=== PATIENT | female | born 1950 | race Caucasian/White ===

== ENCOUNTER 2022-01-30 10:17 | Inpatient (IN) | payer MEDICARE, SELFPAY ==
--- NOTE | ~2022-01-30 | CT_ITS ---
EXAMINATION: CT ABDOMEN AND PELVIS WITH CONTRAST CLINICAL INFORMATION: Lower abdominal pain and fullness COMPARISON: None TECHNIQUE: Multidetector volumetric images were obtained from the superior aspect of the liver through the pubic symphysis following administration 85 mL of Omnipaque 350 intravenous contrast. Sagittal and coronal reformatted images were obtained on the technologist's workstation. Oral contrast: No This CT examination was performed using dose optimization techniques as appropriate, variously including the following: *Automated exposure control *Adjustment of mA and/or kV according to patient size (this includes techniques or standardized protocols for targeted exams where dose is matched to indication/reason for exam; i.e. extremities or head) *Use of iterative reconstruction technique DLP: 703 mGy-cm FINDINGS: LUNG BASES: The visualized lung bases are unremarkable. LIVER, GALLBLADDER, AND BILIARY TREE: The liver is normal in size, shape, and attenuation. No focal hepatic lesion or biliary ductal dilatation is present. The gallbladder is unremarkable with no evidence of radiopaque gallstones, gallbladder wall thickening, or obvious pericholecystic inflammatory changes. PANCREAS: Unremarkable. SPLEEN: Unremarkable. ADRENAL GLANDS: Unremarkable. KIDNEYS AND URETERS: The kidneys are normal in size, shape, and attenuation. No hydronephrosis, hydroureter, or obstructing calculi seen. No perinephric stranding. BLADDER: Minimally distended and not well evaluated. GASTROINTESTINAL TRACT: No evidence of bowel obstruction. Assessment for wall thickening in some segments of the colon is limited due to luminal collapse, though no significant pericolonic stranding is seen to strongly suggest a colitis. Scattered colonic diverticulosis is noted. The appendix is unremarkable. No free fluid or free air is seen. ABDOMINAL WALL: No significant hernia is appreciated. LYMPH NODES: There are several enlarged retroperitoneal and pelvic lymph nodes. The most prominent lymph nodes include a retroperitoneal node measuring up to 2.5 cm short axis dimension on image 37/82 and a left pelvic sidewall lymph node measuring 2.5 cm in short axis dimension on image 54/82. VASCULAR: Unremarkable. PELVIC VISCERA: There is an abnormal appearance of the uterus. There is marked endometrial thickening to approximately 5.9 cm, and numerous foci of gas are scattered throughout the endometrium and cervix. Appearance is suspicious for malignancy. A left-sided fibroid is suspected towards the fundus measuring up to 4.6 cm in diameter. OSSEOUS STRUCTURES: Degenerative changes are noted in the spine. CT/CT abdomen pelvis w IV con IMPRESSION: 1. Marked endometrial thickening along with scattered foci of gas, suspicious for uterine malignancy in a patient of this age. Fistulous connection with the GI tract cannot be excluded. In the proper clinical setting, endometritis could also result in this appearance. 2. Several enlarged retroperitoneal and pelvic lymph nodes, suspicious for rob metastases. This critical result was discussed with Dr. Meng on 01/30/2022 2:58 PM, and it was ascertained that the content and urgency of the report was understood at the time of direct communication.
[2022-01-30 10:21] VITALS: BP 133/73; PULSE 100; RESP 16; TEMP 36.1; O2SAT 96; BMI 26.4
[2022-01-30 10:36] LABS: MANUAL DIFF FLAG NO
[2022-01-30 10:40] LABS: Basophils Percent Auto 0.2 % (0-2); Eosinophils Absolute Auto 0.2 X10*3/uL (0.0-0.4); Eosinophils Percent Auto 1.1 % (0-4); Hematocrit 34.7 % (37.0-47.0); Hemoglobin 11.1 g/dl (12.0-16.0); Imm Gran Abs Auto 0.07 X10*3/uL (0.00-0.03); Imm Gran Pct Auto 0.5 % (0.0-0.4); Lymphocytes Absolute Auto 1.5 X10*3/uL (1.2-4.9); Lymphocytes Percent Auto 10.7 % (20-40); Mean Corpuscular Hemoglobin 28.5 pg (27.0-33.0); Mean Corpuscular Volume 89.2 fL (80.0-98.0); Monocytes Percent Auto 6.8 % (2-11); Neutrophils Absolute Auto 11.5 x10*3/uL (2.0-8.3); Neutrophils Percent Auto 80.7 % (45-73); Platelet Count 333 X10*3/uL (160-400); Red Blood Count 3.89 X10*6/uL (4.20-5.50); White Blood Count 14.3 X10*3/uL (4.8-10.8)
[2022-01-30 10:57] LABS: Alanine Aminotransferase 11 U/L (0-31); Albumin Level 3.4 g/dL (3.5-5.0); Alkaline Phosphatase 102 U/L (39-117); Anion Gap 15 (12-20); Aspartate Amino Transferase 10 U/L (5-31); Bilirubin Direct 0.3 mg/dL (0.0-0.5); Bilirubin Total 0.7 mg/dL (0.0-1.0); Blood Urea Nitrogen 6 mg/dL (9-16); Calcium 9.5 mg/dL (8.4-10.2); Carbon Dioxide 27 mmol/L (22-29); Chloride 103 mmol/L (96-108); Creatinine Clr Calc Pharmacy 85.6; Estimated Glomerular Filt Rate > 60; Glucose Random 128 mg/dL (60-115); Potassium 3.8 mmol/L (3.3-5.1); Sodium 141 mmol/L (135-145)
--- NOTE | 2022-01-30 12:38 | ED_ITS ---
HPI - Abdominal Pain General Chief Complaint: Abdominal Pain Stated Complaint: bowl blockage? vaginal discharge Time Seen by Provider: 01/30/22 12:15 Source: patient Mode of arrival: ambulatory Limitations: no limitations History of Present Illness HPI narrative: patient has been having abdominal pain, patient with left lower pain. only passing small BM but no real BM. Last normal BM was 2 months ago. Now having smaller and thinner BM than normal. MD elicited complaint: abdominal pain Pertinent past history: constipation Onset (ago): month(s) Pain Consistency: intermittent Location: LLQ Severity: moderate Quality: cramping Radiation: none Migration to: no migration Exacerbating factors: eating Associated symptoms: denies other symptoms Related Data Home Medications Medication Instructions Recorded Confirmed viviscal PO 01/30/22 Allergies Allergy/AdvReac Type Severity Reaction Status Date / Time No Known Allergies Allergy Verified 01/30/22 12:25 Review of Systems Constitutional: Reports no additional constitutional complaints Eyes: Reports no additional eye complaints Denies dizziness Cardiovascular: Reports no additional cardiovascular complaints Respiratory: Reports as per HPI Gastrointestinal: Reports no additional gastrointestinal complaints Genitourinary: Reports no additional female genitourinary complaints Musculoskeletal: Reports no additional musculoskeletal complaints Skin/Breast: Denies rash Reports system reviewed and no additional complaints, except as documented, Denies dizziness and Denies Sensory deficit (Neuro) Psychiatric: Denies anxiety [facility] Social History Social History Advance Directives: No Advance Directives Information Provided: No Physical Exam ED Vital Signs: Vital Signs - 24 hr 01/30/22 10:21 01/30/22 12:58 01/30/22 14:31 Temperature 97 F 98.6 F 99.2 F Pulse Rate 100 84 86 Respiratory Rate 16 14 Blood Pressure 133/73 129/73 148/67 H Pulse Oximetry 96 98 99 Oxygen Delivery Method Room Air Room Air Room Air BMI result Body Mass Index 26.4 Const General: healthy appearing Nutritional Appearance: average body habitus Orientation/consciousness: oriented to person and patient oriented x3 Limitations: no limitations HENMT Head: Yes normal to inspection Ears: external ears normal General nose exam: Normal external nose present Mouth: Normal oral and palatal mucosa present and oropharynx normal Throat: Yes posterior oropharynx normal Eyes General: appearance normal, both eyes and all related structures Neck Neck: Yes normal visual inspection Chest Chest palpation & inspection: normal inspection of the chest Resp Auscultation: clear to auscultation bilaterally Cardio Jugular venous distension: no JVD Rate: regular rate Rhythm: regular rhythm Heart sounds: S1 normal heart sound present and S2 normal heart sound present GI Other: left lower quadrant fullness with pain and guarding Palpation (GI): Soft to palpation and Tenderness to palpation present (GI) Auscultation: normal bowel sounds General: Yes no CVA tenderness Back/Spine/Pelvis Back: no CVA tenderness Skin General skin exam: no rashes or lesions noted Neuro General: oriented to person and patient oriented x3 Cranial nerves: Yes CN's II-XII intact bilaterally Motor exam (neuro): 5/5 motor strength present throughout Sensory Exam: No Sensory deficit (Neuro) Extrem General: Yes normal to inspection Psych Appearance: grossly normal Course Reevaluation(s) Reevaluation #1: Discussed with Dr. Mora will consult, started zosyn for endometritis. In retrospect patient has had discharge and bleeding for months, since March so high likelihood of endometrial carcinoma Time: 15:15 MDM - Abdominal Pain Lab Data Result diagrams: 01/30/22 10:30 01/30/22 10:30 Labs: Lab Results 01/30/22 01/30/22 Range/Units 10:30 10:30 WBC 14.3 H (4.8-10.8) X10*3/uL RBC 3.89 L (4.20-5.50) X10*6/uL Hgb 11.1 L (12.0-16.0) g/dl Hct 34.7 L (37.0-47.0) % MCV 89.2 (80.0-98.0) fL MCH 28.5 (27.0-33.0) pg MCHC 32.0 (31.0-35.0) g/dl RDW 14.0 (11.0-16.0) % Plt Count 333 (160-400) X10*3/uL MPV 9.0 L (9.4-12.3) fL Immature Gran % (Auto) 0.5 H (0.0-0.4) % Neut % (Auto) 80.7 H (45-73) % Lymph % (Auto) 10.7 L (20-40) % [place] % (Auto) 6.8 (2-11) % Eos % (Auto) 1.1 (0-4) % Baso % (Auto) 0.2 (0-2) % Lymph # (Auto) 1.5 (1.2-4.9) X10*3/uL [place] # (Auto) 1.0 (0.1-1.2) X10*3/uL Eos # (Auto) 0.2 (0.0-0.4) X10*3/uL Baso # (Auto) 0.0 (0.0-0.2) X10*3/uL Abs Immat Gran (auto) 0.07 H (0.00-0.03) X10*3/uL Absolute Neuts (auto) 11.5 H (2.0-8.3) x10*3/uL Absolute Nucleated RBC 0.000 (0.0-0.012) X10*3/uL Nucleated RBC % (auto) 0.0 (0.0-0.2) /100WBC Sodium 141 (135-145) mmol/L Potassium 3.8 (3.3-5.1) mmol/L Chloride 103 (96-108) mmol/L Carbon Dioxide 27 (22-29) mmol/L Anion Gap 15 (12-20) BUN 6 L (9-16) mg/dL Creatinine 0.57 (0.5-1.4) mg/dL Estim Creat Clear Calc 85.6 Estimated GFR > 60 Random Glucose 128 H (60-115) mg/dL Calcium 9.5 (8.4-10.2) mg/dL Total Bilirubin 0.7 (0.0-1.0) mg/dL Direct Bilirubin 0.3 (0.0-0.5) mg/dL AST 10 (5-31) U/L ALT 11 (0-31) U/L Alkaline Phosphatase 102 (39-117) U/L Total Protein 7.0 (6.5-8.0) g/dL Albumin 3.4 L (3.5-5.0) g/dL Imaging Data CT scan - abdomen: Radiologist's impression: Abnormal uterine with thickening and gas within the uterus likely endometrial carcinoma vs infection. Critical Care Time Critical Care Time Attestation: I spent 40 minutes of critical care, with interventions, assessments, speaking to patient, consultants, and family. Discharge Plan Discharge Clinical Impression: Endometritis, Uterine cancer Patient Disposition: Admitted As Inpatient
[2022-01-30 12:58] VITALS: BP 129/73; PULSE 84; TEMP 37; O2SAT 98
[2022-01-30] MEDS: iohexoL 350 MG/ML 100 ML INFUS..BTL IV (14:19)
[2022-01-30 14:31] VITALS: BP 148/67; PULSE 86; RESP 14; TEMP 37.3; O2SAT 99
--- NOTE | 2022-01-30 15:43 | PC.NURSE ---
Dr. Mora at bedside at this time. Biopsy being performed.
--- NOTE | 2022-01-30 15:59 | P.CONOB_ITS ---
[employer]ENT [employer] - CN: HPI Data of Consult Consult date: 01/30/22 Primary Care Provider: David Terry MD Consult Narrative Narrative: I was consulted on Effie Spear who is a 71 year old female who presented to the emergency room with abdominal/ pelvic pain associated with 6 months history of vaginal bleeding and vaginal discharge, no nausea and vomiting no feverishness or chills many other associated symptoms. 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 - Review of Systems Review of Systems ROS Unobtainable: All systems reviewed & are unremarkable except as noted in HPI and below Cardiovascular: Denies Palpatations, Loss of consciousness or Chest pain Respiratory: Denies Cough, Wheezing or Shortness of breath Musculoskeletal: Denies Low back pain Gastrointestinal: Denies Heartburn, Constipation, Diarrhea, Nausea or Vomiting Genitourinary: Denies Pain with urination, Burning with urination or Urinary frequency Neurological: Denies Migranes Psychological: Denies Depression [facility] Social History Social History Advance Directives: No Advance Directives Information Provided: No Meds Allergies Allergy/AdvReac Type Severity Reaction Status Date / Time No Known Allergies Allergy Verified 01/30/22 12:25 Home Medications Medication Instructions Recorded Confirmed Last Taken Type viviscal PO 01/30/22 Unknown History [employer] Physical Exam Vitals Vital signs: Temp Pulse Resp BP Pulse Ox O2 Del Method 99.2 F 86 14 148/67 H 99 01/30/22 14:31 01/30/22 14:31 01/30/22 14:31 01/30/22 14:31 01/30/22 14:31 01/30/22 14:31 BMI result Body Mass Index 26.4 Constitutional General Appearance: Healthy appearing, Well-nourished and Well-developed Psychiatric Mood and Affect: active and alert, normal mood and normal affect Skin Appearance: No rashes and No lesions Lungs Respiratory Effort: No intercostal retractions Auscultation: Clear to auscultation Cardiovascular Auscultation: RRR Abdomen Auscultation/Inspection/Palpation: Normal bowel sounds, Soft, Non-distended, No CVA tenderness and Tenderness (Bilateral lower abdominal tenderness) Female Genitalia (Pelvic) Vulva: No lesions Vagina: Nontender Cervix: Lesion (2 cm friable necrotic lesion cervical versus mass protruding through the cervix possible endocervical polyp) Uterus: Enlarged (Eighteen week size uterus) Adnexa/Parametria: Adnexal Tenderness: None, Parametrial Tenderness: None and Parametrial Mass: None Additional Comments: Blood and vaginal discharge per vagina [employer] - Results Labs CBC & Chem 7: 01/30/22 10:30 01/30/22 10:30 Labs: Short CBC 01/30/22 Range/Units 10:30 WBC 14.3 H (4.8-10.8) X10*3/uL Hgb 11.1 L (12.0-16.0) g/dl Hct 34.7 L (37.0-47.0) % Plt Count 333 (160-400) X10*3/uL BMP 01/30/22 10:30 Sodium 141 Potassium 3.8 Chloride 103 Carbon Dioxide 27 BUN 6 L Creatinine 0.57 Calcium 9.5 Liver Function 01/30/22 Range/Units 10:30 Total Bilirubin 0.7 (0.0-1.0) mg/dL Direct Bilirubin 0.3 (0.0-0.5) mg/dL AST 10 (5-31) U/L ALT 11 (0-31) U/L Alkaline Phosphatase 102 (39-117) U/L Albumin 3.4 L (3.5-5.0) g/dL Imaging CT scan - pelvis: Radiologist's impression: ITS Impressions Abdomen/Pelvis CT 01/30/22 14:17 IMPRESSION: 1. Marked endometrial thickening along with scattered foci of gas, suspicious for uterine malignancy in a patient of this age. Fistulous connection with the GI tract cannot be excluded. In the proper clinical setting, endometritis could also result in this appearance. 2. Several enlarged retroperitoneal and pelvic lymph nodes, suspicious for rob metastases. This critical result was discussed with Dr. Meng on 01/30/2022 2:58 PM, and it was ascertained that the content and urgency of the report was understood at the time of direct communication. Assessment and Plan (1) Post-menopausal bleeding: Status: Acute Discussed with the patient the finding on CT scan showing thickened endometrium with possible infection, the differential diagnosis of post menopausal bleeding with abnormal pelvic exam was discussed with the patient including but not limited to cervical/endocervical malignancy, endometrial hyperplasia, cancer, polyps and other causes; recommended recommended cervical biopsy and endometrial biopsy. Instructed the patient to schedule an ultrasound follow-up appointment in 2 weeks. The patient agreed with the plan and signed the consent, see procedure note (2) Endometritis: Status: Acute GC and chlamydia with BV panel collected in addition to endometrial biopsy tissues sent for culture. Given the findings on CT scan suggesting possible endometrial infection. Will treat with [facility] parenteral regimen for PID with ceftriaxone 1 g Q 24 , Flagyl 500 mg IV q.12 and doxycycline 100 mg IV q.12, once the patient improves with no fever within 24-48 hours, recommend to transition to p.o. regimen with doxycycline 100 mg p.o. b.i.d. and Flagyl 500 mg p.o. b.i.d. and discharged home for a total of 14 days and to follow-up in the outpatient office (3) Cervical mass: Status: Acute Discussed with the patient the finding on pelvic exam showing a cervical/endocer vical/mass protruding through the endocervix, biopsy recommended, the patient verbalized understanding and agreed with the plan, will check the results and treat accordingly. [employer] Procedures Laceration Additional comments: Endometrial biopsy and cervical mass biopsy procedure note: The patient was counseled regarding the indication and benefits of endometrial sampling to rule out endometrial pathology including not limited to endometrial hyperplasia or endometrial cancer and others; The alternatives (Either do nothing vs. hysteroscopy D&C) & the risks were discussed with the patient including but not limited: pain, uterine perforation, bleeding, infection, possible injury to bladder, bowel, ureter, possible need for blood transfusion with all its possible risks. The patient verbalized understanding all questions answered and signed consent. The patient was placed into the dorsal lithotomy position; a speculum was inserted in the vagina. Using aseptic technique for the procedure, the cervix was cleansed with Betadine. The anterior lip of the cervix was grasped with a single tooth tenaculum. Punch biopsy was used to take a biopsy from the protruding endocervical mass. Monsel solution was used for hemostasis. The uterus was then sounded to 7 cm with a 4 mm Pipelle was used. Tissues samples were obtained and placed in formalin, in a patient labeled container and sent to the pathology department and a small amount of and does meet really tissues was sent for culture. At the end of the procedure, there was minimal bleeding noted The patient tolerated the procedure well and was discharged in good condition with the following instructions: Nothing in the vagina until the bleeding stops. No sex until the bleeding stops, to call if any of the following occurs: fever (>100.4), flu-like symptoms, abdominal pain, heavy bleeding, four smelling vaginal discharge. The patient was instructed to schedule a Follow up appointment in 2 weeks to discuss pathology results of the biopsy and treatment options. This note was generated with a voice recognition program. Some errors may have been overlooked during the review of this note. Sometimes these errors may affect the content or meaning of a given sentence.
[2022-01-30 16:17] VITALS: BP 144/72; PULSE 81; RESP 16; TEMP 36.8; O2SAT 97
--- NOTE | 2022-01-30 16:19 | PHA.MEDREC ---
MED REC COMPLETE, PATIENT ONLY TAKES A FEW OTC ITEMS, NO PRESCRIPTION MEDICATIONS Pharmacy Consult ? Medication Reconciliation Pharmacy has completed the medication reconciliation.
--- NOTE | 2022-01-30 16:24 | PM.CNGS ---
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 Rivera asked for my opinion since the patient is having multiple issues including vaginal bleeding, vaginal discharge and constipation with pellet stool. The patient was seen at the walk-in clinic and then referred to the emergency department & was seen by Dr. 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 Patient reports that her last regular bowel movement was approximately 2 months ago. Review of Systems Review of Systems: Yes all other systems are reviewed and are [facility] Social History Social History Advance Directives: No Advance Directives Information Provided: No Meds Allergies Allergy/AdvReac Type Severity Reaction Status Date / Time No Known Allergies Allergy Verified 01/30/22 12:25 Home Medications Medication Instructions Recorded Confirmed Last Taken Type ibuprofen 200 mg tablet (Advil) 200 mg PO Q6H PRN PAIN 01/30/22 01/30/22 Unknown History lactobacillus combination no.4 3 3,000 mmu cells PO DAILY 01/30/22 01/30/22 Unknown History billion cell capsule (Probiotic) viviscal 2 tab PO DAILY 01/30/22 Unknown History Physical Exam Vital Signs: Vital Signs: Last Vital Signs Temp 98.2 F 01/30/22 16:17 Pulse 81 01/30/22 16:17 Resp 16 01/30/22 16:17 BP 144/72 H 01/30/22 16:17 Pulse Ox 97 01/30/22 16:17 O2 Del Method 01/30/22 16:17 BMI result Body Mass Index 26.4 Results Labs Result diagrams: 01/30/22 10:30 01/30/22 10:30 Labs: Abnormal lab results 01/30/22 01/30/22 Range/Units 10:30 10:30 WBC 14.3 H (4.8-10.8) X10*3/uL RBC 3.89 L (4.20-5.50) X10*6/uL Hgb 11.1 L (12.0-16.0) g/dl Hct 34.7 L (37.0-47.0) % MPV 9.0 L (9.4-12.3) fL Immature Gran % (Auto) 0.5 H (0.0-0.4) % Neut % (Auto) 80.7 H (45-73) % Lymph % (Auto) 10.7 L (20-40) % Abs Immat Gran (auto) 0.07 H (0.00-0.03) X10*3/uL Absolute Neuts (auto) 11.5 H (2.0-8.3) x10*3/uL BUN 6 L (9-16) mg/dL Random Glucose 128 H (60-115) mg/dL Albumin 3.4 L (3.5-5.0) g/dL Short CBC 01/30/22 Range/Units 10:30 WBC 14.3 H (4.8-10.8) X10*3/uL Hgb 11.1 L (12.0-16.0) g/dl Hct 34.7 L (37.0-47.0) % Plt Count 333 (160-400) X10*3/uL BMP 01/30/22 10:30 Sodium 141 Potassium 3.8 Chloride 103 Carbon Dioxide 27 BUN 6 L Creatinine 0.57 Calcium 9.5 Liver Function 01/30/22 Range/Units 10:30 Total Bilirubin 0.7 (0.0-1.0) mg/dL Direct Bilirubin 0.3 (0.0-0.5) mg/dL AST 10 (5-31) U/L ALT 11 (0-31) U/L Alkaline Phosphatase 102 (39-117) U/L Albumin 3.4 L (3.5-5.0) g/dL All other labs normal. Imaging Abdomen CT scan report/results: report reviewed and image reviewed CT scan - pelvis: report reviewed and image reviewed Additional studies: There is no dilation of the small bowel nor colon to suggest a primary bowel process, but the study is limited due to a lack of oral contrast. Assessment and Plan (1) Cervical mass: Status: Acute (2) Post-menopausal bleeding: Status: Acute (3) Uterine cancer: Status: Acute (4) Constipation: Status: Acute Plan Pending input from Dr. Mora, would assess regarding the patient's last colonoscopy in consider GI consultation for possible flexible sigmoidoscopy, if Dr. Mora is concerned about possible colonic or rectal involvement. Procedures Date of Service Date of Service: 01/30/22
--- NOTE | 2022-01-30 17:23 | P.HPHOSP_ITS ---
History of Present Illness Date of Service: 01/30/22 <JEFFERY Mccallum - Last Filed: 01/30/22 17:41> Attending physician on admission: Remi Galvez <JEFFERY Mccallum - Last Filed: 01/30/22 17:41> Chief Complaint: constipation, postmenopausal bleeding <JEFFERY Mccallum - Last Filed: 01/30/22 17:41> 71-year-old female without significant medical history presented earlier today to our urgent care for evaluation of constipation as well as postmenopausal bleeding. She was advised by the Urgent Care to come to the ED for further evaluation. The patient states that about 1 year ago she developed urinary incontinence and has been treating this with azo. About 10 months ago she developed a clear vaginal discharge that was occasionally blood tinged with intra and clots. 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 More recently she has developed pain in the suprapubic and left lower quadrant regions. She has blamed this on constipation. States she only has small bowel movements every few days and treats with a laxative at home as well as heating pads. She has also used enemas to treat constipation. She does also state that she has lost about 80 lb over the last year unintentionally. In the ED, labs were significant for leukocytosis of 14.3. There is mild normocytic anemia with H/H of 11.1/34.7%. CT of the abdomen/pelvis shows marked endometrial thickening along with scattered foci of gas, suspicion for uterine malignancy. There is partial fistulous connection with the GI tract which canno t be excluded. Also suggestive of possible endometritis. There was also noted to be several enlarged retroperitoneal and pelvic lymph nodes suspicious for rob metastasis. She has been seen by Dr. Mora who performed cervical and endometrial biopsy well and P ED. He also collected GC and chlamydia cultures along with BV panel. Recommends treatment for PID with inpatient admission. In the ED, received dose of Zosyn. Blood cultures are pending. <JEFFERY Mccallum - Last Filed: 01/30/22 17:41> Review of Systems Review of Systems: General: +unintentional weight loss. No fevers, malaise Cardiovascular: No chest pain, palpitations, or leg edema Respiratory: No shortness of breath, wheezing, cough GI: +abd pain, +constipation. No nausea, vomiting, diarrhea, melena, arya tochezia : +urinary incontinence. No dysuria, hematuria, urgency REGRINDER OPERATOR: +postmenopausal bleeding, +vaginal discharge Neuro: No headaches, weakness, paresthesias Skin: No rashes or lesions <JEFFERY Mccallum - Last Filed: 01/30/22 17:41> [facility], [facility] Medical History: Medical History (Updated 01/30/22 @ 17:31 by JEFFERY Mccallum) Endometritis Uterine cancer <JEFFERY Mccallum - Last Filed: 01/30/22 17:41> Family History: Family History (Updated 01/30/22 @ 17:33 by JEFFERY Mccallum) Mother Diabetes Sister Henri-Danlos disease <JEFFERY Mccallum - Last Filed: 01/30/22 17:41> Social History: Social History Advance Directives: No Advance Directives Information Provided: No service: No Current occupational status: retired <JEFFERY Mccallum - Last Filed: 01/30/22 17:41> Meds Allergies/Adverse reactions: Allergies Allergy/AdvReac Type Severity Reaction Status Date / Time No Known Allergies Allergy Verified 01/30/22 12:25 <JEFFERY Mccallum - Last Filed: 01/30/22 17:41> Home medications: Home Medications Medication Instructions Recorded Confirmed Last Taken Type ibuprofen 200 mg tablet (Advil) 200 mg PO Q6H PRN PAIN 01/30/22 01/30/22 Unknown History lactobacillus combination no.4 3 3,000 mmu cells PO DAILY 01/30/22 01/30/22 Unknown History billion cell capsule (Probiotic) viviscal 2 tab PO DAILY 01/30/22 Unknown History <JEFFERY Mccallum - Last Filed: 01/30/22 17:41> Physical Exam Vital Signs and Narrative: Vital Signs: Last Vital Signs Temp 98.2 F 01/30/22 16:17 Pulse 81 01/30/22 16:17 Resp 16 01/30/22 16:17 BP 144/72 H 01/30/22 16:17 Pulse Ox 97 01/30/22 16:17 O2 Del Method 01/30/22 16:17 BMI result Body Mass Index 26.4 <JEFFERY Mccallum - Last Filed: 01/30/22 17:41> Constitutional - Awake and Alert, No apparent distress Eyes - PERRLA, EOMI Cardiovascular - S1S2, RRR, No edema Respiratory - Normal lung expansion, Normal respiratory effort, No respiratory distress, CTA bilaterally Gastrointestinal - Bilateral lower abdomen ttp. ND; +BS; No rebound or guarding Extremities - no calf tenderness bilaterally, no swelling Musculoskeletal - Normal inspection, normal ROM Skin - Warm/Dry Neurological - Alert & oriented x3, CN II -XII in tact. No sensory or motor deficit Psychological - Appropriate affect <JEFFERY Mccallum - Last Filed: 01/30/22 17:41> Results Labs CBC and Chem 7: : 01/31/22 06:16 01/30/22 10:30 <JEFFERY Mccallum - Last Filed: 01/30/22 17:41> Labs: Laboratory Results - last 24 hr 01/30/22 01/30/22 10:30 10:30 MCV 89.2 MCH 28.5 MCHC 32.0 RDW 14.0 Plt Count 333 MPV 9.0 L Immature Gran % (Auto) 0.5 H Neut % (Auto) 80.7 H Lymph % (Auto) 10.7 L [place] % (Auto) 6.8 Eos % (Auto) 1.1 Baso % (Auto) 0.2 Lymph # (Auto) 1.5 [place] # (Auto) 1.0 Eos # (Auto) 0.2 Baso # (Auto) 0.0 Abs Immat Gran (auto) 0.07 H Absolute Neuts (auto) 11.5 H Absolute Nucleated RBC 0.000 Nucleated RBC % (auto) 0.0 Anion Gap 15 Estim Creat Clear Calc 85.6 Estimated GFR > 60 Random Glucose 128 H Calcium 9.5 Total Bilirubin 0.7 Direct Bilirubin 0.3 AST 10 ALT 11 Alkaline Phosphatase 102 Total Protein 7.0 Albumin 3.4 L <JEFFERY Mccallum - Last Filed: 01/30/22 17:41> Imaging Radiologist's Impressions: Impressions Abdomen/Pelvis CT 01/30/22 14:17 IMPRESSION: 1. Marked endometrial thickening along with scattered foci of gas, suspicious for uterine malignancy in a patient of this age. Fistulous connection with the GI tract cannot be excluded. In the proper clinical setting, endometritis could also result in this appearance. 2. Several enlarged retroperitoneal and pelvic lymph nodes, suspicious for rob metastases. This critical result was discussed with Dr. Meng on 01/30/2022 2:58 PM, and it was ascertained that the content and urgency of the report was understood at the time of direct communication. <JEFFERY Mccallum - Last Filed: 01/30/22 17:41> Assessment and Plan (1) Endometritis: Status: Acute <JEFFERY Mccallum - Last Filed: 01/30/22 17:41> (2) Uterine cancer: Status: Acute <JEFFERY Mccallum - Last Filed: 01/30/22 17:41> 71-year-old female without significant medical history to be observed for endometritis/PID and uterine cancer. 1-Endometritis/PID -Seen and will continue to be followed by Dr. Mora -Leukocytosis 14.3. Hemodyamically stable. No sepsis. Follow CBC -IV flagyl, IV cetriaxone, and PO doxycycline per REGRINDER OPERATOR -GC, chlamydia cultures, BV panel pending -Oxycodone and dilaudid per pain scale 2-Uterine cancer- hx of postmenopausal bleeding x 6 months without anemia -Ct abd/pelvis with marked endometrial thickening along with scattered foci of gas, suspicious for uterine malignancy given age. Also several enlarged retroperitoneal and pelvic lymph nodes, suspicious for rob mets -Cervical and endometrial bx performed by Dr. Mora -Follow up outpt with Dr. Mora for further management 3-Chronic constipation -Docusate and miralax DVT prophylaxis- mechanical today following bx. Lovenox tomorow DNR/DNI requested by pt today <JEFFERY Mccallum - Last Filed: 01/30/22 17:41> 71-year-old female without significant medical history to be observed for endometritis/PID and uterine cancer. 1-Endometritis/PID -Seen and will continue to be followed by Dr. Mora -Leukocytosis 14.3. Hemodyamically stable. No sepsis. Follow CBC -IV flagyl, IV cetriaxone, and PO doxycycline per REGRINDER OPERATOR -GC, chlamydia cultures, BV panel pending -Oxycodone and dilaudid per pain scale 2-Uterine cancer- hx of postmenopausal bleeding x 6 months without anemia -Ct abd/pelvis with marked endometrial thickening along with scattered foci of gas, suspicious for uterine malignancy given age. Also several enlarged retroperitoneal and pelvic lymph nodes, suspicious for rob mets -Cervical and endometrial bx performed by Dr. Mora -Follow up outpt with Dr. Mora for further management 3-Chronic constipation -Docusate and miralax DVT prophylaxis- mechanical today following bx. Lovenox tomorow DNR/DNI requested by pt today. patient seen examined in the ER, resting comfortably offers no acute complaints case discussed with Dr. Mora will continue IV antibiotics as ordered, follow cultures. <Remi Galvez MD - Last Filed: 01/31/22 15:17> Quality Stroke Does the patient have a stroke diagnosis?: No <JEFFERY Mccallum - Last Filed: 01/30/22 17:41> VTE Prior VTE?: No <JEFFERY Mccallum - Last Filed: 01/30/22 17:41> VTE Risk Level:: Medical - moderate - high <JEFFERY Mccallum - Last Filed: 01/30/22 17:41> VTE Device Contraindication: Treatment Not Indicated <JEFFERY Mccallum - Last Filed: 01/30/22 17:41> VTE Drug Contraindication: N/A - Med Ordered <JEFFERY Mccallum - Last Filed: 01/30/22 17:41>
[2022-01-30] MEDS: cefTRIAXone sodium 1 GM in 0.9 % Sodium Chloride 50 ML IV (17:48)
[2022-01-30] MEDS: metroNIDAZOLE/NS 500 MG/100 ML PIGGYBACK 100 MG IV (18:01)
[2022-01-30 18:42] LABS: CT PCR NOT DETECTED (Not Detect.); NG PCR NOT DETECTED (Not Detect.)
[2022-01-30 20:27] VITALS: BP 122/58; PULSE 103; RESP 16; O2SAT 96
[2022-01-30] MEDS: Acetaminophen 325 MG TABLET 650 MG PO (20:50)
[2022-01-30] MEDS: ondansetron HCL 4 MG/2 ML VIAL IVPUSH (20:51)
[2022-01-30] MEDS: Docusate Sodium 100 MG CAPSULE PO (20:51)
[2022-01-30] MEDS: HYDROmorphone HCl 1 MG/ML SYRINGE 0.5 MG IVPUSH (20:51)
[2022-01-30 20:53] LABS: COVID-19 Test Negative (Negative)
[2022-01-30 23:24] VITALS: BP 99/42; PULSE 86; RESP 16; TEMP 36.9; O2SAT 95
[2022-01-31] VITALS (11 sets, daily range): BP systolic 118–167; BP diastolic 46–77; PULSE 79–102; RESP 12–20; TEMP 36.6–39.1; O2SAT 95–98
[2022-01-31] MEDS: 0.9 % Sodium Chloride Flush 3 ML SYRINGE IVFLUSH ×3 (00:56→17:28)
[2022-01-31] MEDS: HYDROmorphone HCl 1 MG/ML SYRINGE 0.5 MG IVPUSH (01:14)
[2022-01-31] MEDS: oxyCODONE HCl Immed Release 5 MG TABLET PO ×2 (01:15→05:45)
--- NOTE | 2022-01-31 03:14 | PC.NURSE ---
PT walked to BR, REQUESTED PAD LINER FOR UNDERWEAR. PT WALKED BACK TO ROOM AFTER FINISHED AND GIVEN PAD LINERS FOR UNDERWEAR FOR FUTURE USE
[2022-01-31] MEDS: Morphine Sulfate 4 MG/ML CARTRIDGE IVPUSH (05:07)
[2022-01-31] MEDS: metroNIDAZOLE/NS 500 MG/100 ML PIGGYBACK 100 MG IV ×2 (05:45→17:59)
[2022-01-31] MEDS: Acetaminophen 325 MG TABLET 650 MG PO ×2 (05:45→15:02)
[2022-01-31 06:49] LABS: MANUAL DIFF FLAG NO
[2022-01-31 06:53] LABS: Basophils Percent Auto 0.2 % (0-2); Eosinophils Absolute Auto 0.1 X10*3/uL (0.0-0.4); Eosinophils Percent Auto 0.5 % (0-4); Imm Gran Abs Auto 0.12 X10*3/uL (0.00-0.03); Imm Gran Pct Auto 0.7 % (0.0-0.4); Lymphocytes Absolute Auto 0.6 X10*3/uL (1.2-4.9); Lymphocytes Percent Auto 3.5 % (20-40); Mean Corpuscular HGB Conc 31.3 g/dl (31.0-35.0); Mean Corpuscular Hemoglobin 28.3 pg (27.0-33.0); Mean Corpuscular Volume 90.7 fL (80.0-98.0); Mean Platelet Volume 9.7 fL (9.4-12.3); Monocytes Absolute Auto 0.9 X10*3/uL (0.1-1.2); Monocytes Percent Auto 5.6 % (2-11); Neutrophils Absolute Auto 14.8 x10*3/uL (2.0-8.3); Neutrophils Percent Auto 89.5 % (45-73); Platelet Count 299 X10*3/uL (160-400); Red Blood Count 3.53 X10*6/uL (4.20-5.50); Red Cell Distribution Width 14.1 % (11.0-16.0); White Blood Count 16.5 X10*3/uL (4.8-10.8)
[2022-01-31] MEDS: polyethylene glycoL 3350 17 GM POWD.PACK PO (08:21)
[2022-01-31] MEDS: Docusate Sodium 100 MG CAPSULE PO ×2 (08:21→20:09)
[2022-01-31] MEDS: HYDROmorphone HCl 1 MG/ML SYRINGE IVPUSH ×3 (11:09→22:22)
--- NOTE | 2022-01-31 11:11 | PC.NURSE ---
Dr. Galvez ordered to give 1 mg dilaudid and heat pack to patient for pain.
--- NOTE | 2022-01-31 12:05 | PM.GYNPNOP ---
INTEGRATIVE MEDICINE PHYSICIAN - Subjective Subjective Date of Service: 01/31/22 Subjective Findings: Ambulating well: Reports, Flatus passed: Reports and Pain controlled: Reports PULPING MACHINE OPERATOR Physical Exam Vitals Vital signs: Temp Pulse Resp BP Pulse Ox O2 Del Method 98.9 F 87 20 119/46 L 95 01/31/22 07:16 01/31/22 07:16 01/31/22 11:09 01/31/22 07:16 01/31/22 07:16 01/31/22 07:16 BMI result Body Mass Index 26.4 Abdomen Auscultation/Inspection/Palpation: Normal bowel sounds, Soft and Tenderness (Mild lower abdominal tenderness) INTEGRATIVE MEDICINE PHYSICIAN - Prog Note: Results Labs CBC & Chem 7: 01/31/22 06:16 01/30/22 10:30 Labs: Laboratory Results - last 24 hr 01/30/22 01/30/22 01/31/22 16:10 20:32 06:16 WBC 16.5 H RBC 3.53 L Hgb 10.0 L Hct 32.0 L MCV 90.7 MCH 28.3 MCHC 31.3 RDW 14.1 Plt Count 299 MPV 9.7 Immature Gran % (Auto) 0.7 H Neut % (Auto) 89.5 H Lymph % (Auto) 3.5 L [place] % (Auto) 5.6 Eos % (Auto) 0.5 Baso % (Auto) 0.2 Lymph # (Auto) 0.6 L [place] # (Auto) 0.9 Eos # (Auto) 0.1 Baso # (Auto) 0.0 Abs Immat Gran (auto) 0.12 H Absolute Neuts (auto) 14.8 H Absolute Nucleated RBC 0.000 Nucleated RBC % (auto) 0.0 Chlam trachomat DNA PCR NOT DETECTED COVID-19 (HERMELINDA) Negative COVID-19 Clin Com See Note N.gonorrhoeae DNA (PCR) NOT DETECTED INTEGRATIVE MEDICINE PHYSICIAN - A/P (1) Endometritis: Status: Acute Assessment and Plan: Gram stain showed Gram-positive cocci min Gram-negative rods, EMB and blood cultures still pending, Continue on antibiotics and repeat CBC in a.m., if no improvement clinically and or with leukocytosis consider ID consult (2) Uterine cancer: Status: Acute Assessment and Plan: Pathology still pending Time Spent With Patient Time: Total time spent is greater than 50% in coordination of care (as documented) at patient's floor/unit and/or counseling patient: Quality Measures - PULPING MACHINE OPERATOR H&P VTE Prior VTE?: No VTE Risk Level:: Medical - moderate - high VTE Device Contraindication: Treatment Not Indicated VTE Drug Contraindication: N/A - Med Ordered
--- NOTE | 2022-01-31 12:20 | MHC.CM.PN ---
Met with patient and sig other in regards to discharge planning. Patient lives with her son, ambulates independently and had no services prior to coming to the hospital. PCP verified. Patient has a HCP at home. Patient has received 4 [place]er[place] vaccines. IMM explained and signed. Patient's sig other will transport patient home when medically stable. Continue to monitor for d/c needs.
[2022-01-31 13:20] LABS: BV Int Neg Control Negative (Negative); BV Int Pos Control Positive (Positive)
--- NOTE | 2022-01-31 15:17 | P.PNIM_ITS ---
Subjective Subjective Date of Service: 01/31/22 Interval History: complaining of left lower quadrant abdominal discomfort, has similar pain at home, denies associated nausea, vomiting later in the day noted to have a fever of 102.4, denies chest pain, no shortness of breath, no headache, no dizziness, no worsening of lower quadrant pain. Review of Systems Review of Systems: Yes all other systems are reviewed and are negative Physical Exam Vital Signs: Vital Signs: Last Vital Signs Temp 102.4 F H 01/31/22 15:01 Pulse 102 H 01/31/22 15:01 Resp 18 01/31/22 15:01 BP 167/77 H 01/31/22 15:01 Pulse Ox 98 01/31/22 15:01 O2 Del Method 01/31/22 15:01 BMI result Body Mass Index 26.4 Const: Other: General awake alert x3 mild distress due to pain . Neck no JVD. CVS regular rate rhythm, Respiratory lungs clear to auscultation, no respiratory distress, no wheeze, no rhonchi. Gastrointestinal abdomen soft, left lower quadrant tenderness to palpation, no rebound, no rigidity. Extremities no edema. Neuro nonfocal Skin no rash Objective Data Active Medications Acetaminophen (Acetaminophen 325 Mg Tablet) 650 mg PO Q6H PRN PRN Reason: Pain, Mild (Pain Scale 1-3) Last Admin: 01/31/22 15:02 Dose: 650 mg Documented By: BEBE Docusate Sodium (Docusate Sodium 100 Mg Capsule) 100 mg PO BID [facility] Last Admin: 01/31/22 08:21 Dose: 100 mg Documented By: ABIGAIL Enoxaparin Sodium (Enoxaparin Sodium 40 Mg/0.4 Ml Syringe) 40 mg SUBCUT Q24H [facility] Hydromorphone HCl (Hydromorphone Hcl 1 Mg/Ml Syringe) 1 mg IVPUSH Q4H PRN; Protocol PRN Reason: Pain, Severe (Pain Scale 7-10) Last Admin: 01/31/22 15:02 Dose: 1 mg Documented By: BEBE Ceftriaxone Sodium 1 gm/ (Sodium Chloride) 50 mls @ 100 mls/hr IV Q24H [facility] Last Infusion: 01/30/22 18:20 Dose: 0 mls/hr Documented By: GULSHAN Metronidazole (Flagyl) 500 mg in 100 mls @ 100 mls/hr IV Q12H [facility] Last Admin: 01/31/22 05:45 Dose: 100 mls/hr Documented By: MEHUL Doxycycline Hyclate 100 mg/ (Sodium Chloride) 250 mls @ 166.67 mls/hr IV Q12H [facility] Vancomycin HCl 1,000 mg/ (Sodium Chloride) 270 mls @ 270 mls/hr IV ONCE ONE Stop: 01/31/22 16:12 Ondansetron HCl (Ondansetron Hcl 4 Mg/2 Ml Vial) 4 mg IVPUSH Q8H PRN PRN Reason: Nausea and Vomiting Last Admin: 01/30/22 20:51 Dose: 4 mg Documented By: MEHUL Oxycodone HCl (Oxycodone Hcl Immed Release 5 Mg Tablet) 5 mg PO Q6H PRN PRN Reason: Pain, Moderate (Pain Scale 4-6 Last Admin: 01/31/22 05:45 Dose: 5 mg Documented By: MEHUL Pharmacy Consult (Consult Rx Vancomycin Dosing) 1 each MISCELLANE DAILY PRN PRN Reason: Consult order Polyethylene Glycol (Polyethylene Glycol 3350 17 Gm Powd.Pack) 17 gm PO DAILY [facility] Last Admin: 01/31/22 08:21 Dose: 17 gm Documented By: ABIGAIL Sodium Chloride (0.9 % Sodium Chloride Flush 3 Ml Syringe) 3 ml IVFLUSH QSHIFT [facility] Last Admin: 01/31/22 08:21 Dose: 3 ml Documented By: ABIGAIL Labs CBC & Chem 7: 01/31/22 06:16 01/30/22 10:30 Labs: Laboratory Results - last 24 hr 01/30/22 01/30/22 01/30/22 16:10 16:10 20:32 MCV MCH MCHC RDW Plt Count MPV Immature Gran % (Auto) Neut % (Auto) Lymph % (Auto) [place] % (Auto) Eos % (Auto) Baso % (Auto) Lymph # (Auto) [place] # (Auto) Eos # (Auto) Baso # (Auto) Abs Immat Gran (auto) Absolute Neuts (auto) Absolute Nucleated RBC Nucleated RBC % (auto) Vielka species DNA Negative Chlam trachomat DNA PCR NOT DETECTED COVID-19 (HERMELINDA) Negative COVID-19 Clin Com See Note Gardnerella DNA Probe Negative N.gonorrhoeae DNA (PCR) NOT DETECTED Trichomonas DNA Probe Negative 01/31/22 06:16 MCV 90.7 MCH 28.3 MCHC 31.3 RDW 14.1 Plt Count 299 MPV 9.7 Immature Gran % (Auto) 0.7 H Neut % (Auto) 89.5 H Lymph % (Auto) 3.5 L [place] % (Auto) 5.6 Eos % (Auto) 0.5 Baso % (Auto) 0.2 Lymph # (Auto) 0.6 L [place] # (Auto) 0.9 Eos # (Auto) 0.1 Baso # (Auto) 0.0 Abs Immat Gran (auto) 0.12 H Absolute Neuts (auto) 14.8 H Absolute Nucleated RBC 0.000 Nucleated RBC % (auto) 0.0 Vielka species DNA Chlam trachomat DNA PCR COVID-19 (HERMELINDA) COVID-19 Clin Com Gardnerella DNA Probe N.gonorrhoeae DNA (PCR) Trichomonas DNA Probe Microbiology Microbiology Results: Microbiology 01/30/22 16:10 Gram Stain - Final Endometrium Routine Culture - Preliminary Culture in progress. Assessment and Plan (1) Uterine cancer: Status: Acute (2) Endometritis: Status: Acute (3) Constipation: Status: Acute (4) Cervical mass: Status: Acute (5) Post-menopausal bleeding: Status: Acute Plan 71-year-old female without significant medical history to be observed for endometritis/PID and uterine cancer. 1- Sepsis due to Endometritis/PID patient noted to tachycardia, fever this afternoon with worsening WBC will check lactic acid repeat blood cultures give 1 dose of IV vancomycin continue IV flagyl, IV cetriaxone, and iv doxycycline day 2 GC, chlamydia cultures, BV panel pending - due to significant left lower quadrant pain will increase dose of Dilaudid 1 mg q.4 hours as needed and continue Oxycodone prn 2-Uterine cancer- hx of postmenopausal bleeding x 6 months with mild ch. anemia -Ct abd/pelvis with marked endometrial thickening along with scattered foci of gas, suspicious for uterine malignancy given age. Also several enlarged retroperitoneal and pelvic lymph nodes, suspicious for rob mets -Cervical and endometrial bx performed by Dr. Mora -Follow report of biopsy and recommend outpt with Dr. Mora for further management 3-Chronic constipation - continue Docusate and miralax last bowel movement 01/29 DVT prophylaxis- Lovenox subq patient will need continued inpatient hospitalization due to sepsis requiring IV antibiotics treatment cannot be provided at less acute setting. Quality Stroke Does the patient have a stroke diagnosis?: No VTE Prior VTE?: No VTE Risk Level:: Medical - moderate - high VTE Device Contraindication: Treatment Not Indicated VTE Drug Contraindication: N/A - Med Ordered
[2022-01-31 16:04] LABS: Lactic Acid 0.8 mmol/L (0.5-2.0)
[2022-01-31] MEDS: vancomycin HCL 1,000 MG in 0.9 % Sodium Chloride 250 ML 270 MG IV (16:04)
[2022-01-31] MEDS: cefTRIAXone sodium 1 GM in 0.9 % Sodium Chloride 50 ML IV (17:22)
--- NOTE | 2022-01-31 19:36 | PC.NURSE ---
1500: temp 102.4 orally. Pt c/o severe pain to LLQ. IV dilaudid given and po tylenol. Dr Galvez notified. Blood cultures and lactic drawn.
[2022-01-31] MEDS: Enoxaparin Sodium 40 MG/0.4 ML SYRINGE SUBCUT (20:10)
[2022-01-31] MEDS: Doxycycline Hyclate 100 MG in 0.9 % Sodium Chloride 250 ML 166.67 MG IV (20:12)
--- NOTE | 2022-01-31 23:05 | PC.NURSE ---
First set of blood cultures came back gram positive cocci in chains. Dr. Li notified via [employer]. No new orders at this time. Patient is currently on antibiotics.
[2022-02-01 00:27] VITALS: BP 126/61; PULSE 80; RESP 17; TEMP 36.2; O2SAT 97
[2022-02-01] MEDS: HYDROmorphone HCl 1 MG/ML SYRINGE IVPUSH ×2 (01:33→22:31)
[2022-02-01] MEDS: ondansetron HCL 4 MG/2 ML VIAL IVPUSH (01:34)
--- NOTE | 2022-02-01 02:29 | PC.NURSE ---
Patient woke up started pacing went to bathroom vomited and c/o pain medicated with relief. Patient now sleeping.
[2022-02-01] MEDS: oxyCODONE HCl Immed Release 5 MG TABLET PO ×2 (05:18→16:25)
[2022-02-01] MEDS: metroNIDAZOLE/NS 500 MG/100 ML PIGGYBACK 100 MG IV ×2 (05:20→18:05)
[2022-02-01 05:31] VITALS: BP 123/60; PULSE 76
[2022-02-01] MEDS: Docusate Sodium 100 MG CAPSULE PO ×2 (07:36→20:04)
[2022-02-01] MEDS: Doxycycline Hyclate 100 MG in 0.9 % Sodium Chloride 250 ML 166.67 MG IV ×2 (07:36→20:12)
[2022-02-01] MEDS: polyethylene glycoL 3350 17 GM POWD.PACK PO (07:37)
[2022-02-01] MEDS: 0.9 % Sodium Chloride Flush 3 ML SYRINGE IVFLUSH ×2 (07:39→16:28)
[2022-02-01 09:00] LABS: MANUAL DIFF FLAG NO
[2022-02-01 09:09] LABS: Basophils Percent Auto 0.2 % (0-2); Eosinophils Absolute Auto 0.1 X10*3/uL (0.0-0.4); Eosinophils Percent Auto 0.9 % (0-4); Hematocrit 33.5 % (37.0-47.0); Hemoglobin 10.7 g/dl (12.0-16.0); Imm Gran Abs Auto 0.05 X10*3/uL (0.00-0.03); Imm Gran Pct Auto 0.5 % (0.0-0.4); Lymphocytes Absolute Auto 1.2 X10*3/uL (1.2-4.9); Mean Corpuscular HGB Conc 31.9 g/dl (31.0-35.0); Mean Corpuscular Hemoglobin 28.6 pg (27.0-33.0); Mean Corpuscular Volume 89.6 fL (80.0-98.0); Mean Platelet Volume 9.1 fL (9.4-12.3); Monocytes Absolute Auto 0.9 X10*3/uL (0.1-1.2); Monocytes Percent Auto 9.7 % (2-11); Neutrophils Percent Auto 75.7 % (45-73); Platelet Count 267 X10*3/uL (160-400); Red Blood Count 3.74 X10*6/uL (4.20-5.50); Red Cell Distribution Width 13.9 % (11.0-16.0); White Blood Count 9.2 X10*3/uL (4.8-10.8)
[2022-02-01 09:28] LABS: Anion Gap 16 (12-20); Blood Urea Nitrogen 9 mg/dL (9-16); Calcium 9.1 mg/dL (8.4-10.2); Carbon Dioxide 25 mmol/L (22-29); Chloride 99 mmol/L (96-108); Creatinine Clr Calc Pharmacy 84.2; Estimated Glomerular Filt Rate > 60; Glucose Random 128 mg/dL (60-115); Potassium 3.5 mmol/L (3.3-5.1); Sodium 136 mmol/L (135-145)
[2022-02-01 10:51] VITALS: BP 114/51; PULSE 73; RESP 12; TEMP 36.3; O2SAT 97
[2022-02-01] MEDS: Lactulose 20 GM/30 ML SOLUTION 10 GM PO (12:41)
--- NOTE | 2022-02-01 12:57 | P.PNIM_ITS ---
Subjective Subjective Date of Service: 02/01/22 Interval History: patient feeling better this morning less abdominal pain no recurrent fever since yesterday, no nausea no vomiting, tolerating diet complaining of constipation, continued to have dark bloody cervical discharge, no acute events overnight. 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 awake alert x3 mild distress due to pain .? Neck no JVD. CVS? regular rate rhythm, Respiratory lungs clear to auscultation, no respiratory distress, no wheeze, no rhonchi. Gastrointestinal abdomen soft,mild left lower quadrant tenderness , no rebound, no rigidity. Extremities no edema. Neuro nonfocal Skin no rash? Objective Data Active Medications Acetaminophen (Acetaminophen 325 Mg Tablet) 650 mg PO Q6H PRN PRN Reason: Pain, Mild (Pain Scale 1-3) Last Admin: 01/31/22 15:02 Dose: 650 mg Documented By: BEBE Docusate Sodium (Docusate Sodium 100 Mg Capsule) 100 mg PO BID [facility] Last Admin: 02/01/22 07:36 Dose: 100 mg Documented By: DANILO-GE Enoxaparin Sodium (Enoxaparin Sodium 40 Mg/0.4 Ml Syringe) 40 mg SUBCUT Q24H [facility] Last Admin: 01/31/22 20:10 Dose: 40 mg Documented By: TUMDICK Hydromorphone HCl (Hydromorphone Hcl 1 Mg/Ml Syringe) 0.5 mg IVPUSH Q6H PRN; Protocol PRN Reason: Pain, Severe (Pain Scale 7-10) Ceftriaxone Sodium 1 gm/ (Sodium Chloride) 50 mls @ 100 mls/hr IV Q24H [facility] Last Infusion: 01/31/22 18:05 Dose: 0 mls/hr Documented By: BEBE Metronidazole (Flagyl) 500 mg in 100 mls @ 100 mls/hr IV Q12H [facility] Last Infusion: 02/01/22 07:14 Dose: 0 mls/hr Documented By: GUERLINE Doxycycline Hyclate 100 mg/ (Sodium Chloride) 250 mls @ 166.67 mls/hr IV Q12H [facility] Last Infusion: 02/01/22 09:58 Dose: 0 mls/hr Documented By: GUERLINE Ondansetron HCl (Ondansetron Hcl 4 Mg/2 Ml Vial) 4 mg IVPUSH Q8H PRN PRN Reason: Nausea and Vomiting Last Admin: 02/01/22 01:34 Dose: 4 mg Documented By: DON Oxycodone HCl (Oxycodone Hcl Immed Release 5 Mg Tablet) 5 mg PO Q6H PRN PRN Reason: Pain, Moderate (Pain Scale 4-6 Last Admin: 02/01/22 05:18 Dose: 5 mg Documented By: OPAL Polyethylene Glycol (Polyethylene Glycol 3350 17 Gm Powd.Pack) 17 gm PO DAILY [facility] Last Admin: 02/01/22 07:37 Dose: 17 gm Documented By: GUERLINE Polyethylene Glycol (Polyethylene Glycol 3350 17 Gm Powd.Pack) 17 gm PO DAILY [facility] Sodium Chloride (0.9 % Sodium Chloride Flush 3 Ml Syringe) 3 ml IVFLUSH QSHIFT [facility] Last Admin: 02/01/22 07:39 Dose: 3 ml Documented By: GUERLINE Labs CBC & Chem 7: 02/01/22 08:45 02/01/22 08:45 Labs: Laboratory Results - last 24 hr 01/30/22 01/31/22 02/01/22 16:10 15:44 08:45 MCV 89.6 MCH 28.6 MCHC 31.9 RDW 13.9 Plt Count 267 MPV 9.1 L Immature Gran % (Auto) 0.5 H Neut % (Auto) 75.7 H Lymph % (Auto) 13.0 L [place] % (Auto) 9.7 Eos % (Auto) 0.9 Baso % (Auto) 0.2 Lymph # (Auto) 1.2 [place] # (Auto) 0.9 Eos # (Auto) 0.1 Baso # (Auto) 0.0 Abs Immat Gran (auto) 0.05 H Absolute Neuts (auto) 7.0 Absolute Nucleated RBC 0.000 Nucleated RBC % (auto) 0.0 Anion Gap Estim Creat Clear Calc Estimated GFR Random Glucose Lactic Acid 0.8 Calcium Vielka species DNA Negative Gardnerella DNA Probe Negative Trichomonas DNA Probe Negative 02/01/22 08:45 MCV MCH MCHC RDW Plt Count MPV Immature Gran % (Auto) Neut % (Auto) Lymph % (Auto) Gibson % (Auto) Eos % (Auto) Baso % (Auto) Lymph # (Auto) [place] # (Auto) Eos # (Auto) Baso # (Auto) Abs Immat Gran (auto) Absolute Neuts (auto) Absolute Nucleated RBC Nucleated RBC % (auto) Anion Gap 16 Estim Creat Clear Calc 84.2 Estimated GFR > 60 Random Glucose 128 H Lactic Acid Calcium 9.1 Vielka species DNA Gardnerella DNA Probe Trichomonas DNA Probe Microbiology Microbiology Results: Microbiology 01/30/22 16:10 Gram Stain - Final Endometrium Routine Culture - Preliminary Coag negative Staphylococcus Anaerobic Culture - Preliminary Culture in progress. 01/30/22 16:34 Blood Culture - Preliminary Blood - Venous Prelim: GPC Gram Stain only 01/30/22 16:44 Blood Culture - Preliminary Blood - Venous Prelim: GPC Gram Stain only Prelim: GNR Gram Stain only Assessment and Plan (1) Uterine cancer: Status: Acute (2) Endometritis: Status: Acute (3) Constipation: Status: Acute (4) Cervical mass: Status: Acute (5) Post-menopausal bleeding: Status: Acute Plan 71-year-old female without significant medical history to be observed for endometritis/PID and uterine cancer. 1- Sepsis due to Endometritis/PID no recurrent fevers since yesterday, WBC normalized, normal lactic acid blood cultures growing Gram-positive cocci and Gram-negative alethea repeat blood cultures from 01/31 pending, cervical culture grew coagulase-negative Staph, anaerobic culture pending continue IV flagyl, IV cetriaxone, and iv doxycycline day 3, status post 1 dose of IV vanco, will follow final blood culture report GC, chlamydia cultures, negative - continue pain management with Dilaudid reduce dose to 0.5 mg IV as needed and continue Oxycodone prn 2-Uterine cancer- hx of postmenopausal bleeding x 6 months with mild ch. anemia -Ct abd/pelvis with marked endometrial thickening along with scattered foci of gas, suspicious for uterine malignancy given age. Also several enlarged r etroperitoneal and pelvic lymph nodes, suspicious for rob mets -Cervical and endometrial bx showed high-grade Ca Dr. Mora will discuss outpatient management with patient 3-Chronic constipation - persistent constipation will 1 dose of lactulose, and continue Docusate and miralax last bowel movement 01/29 DVT prophylaxis- Lovenox subq patient will need continued inpatient hospitalization due to sepsis requiring IV antibiotics treatment cannot be provided at less acute setting. Quality Stroke Does the patient have a stroke diagnosis?: No VTE Prior VTE?: No VTE Risk Level:: Medical - moderate - high VTE Device Contraindication: Treatment Not Indicated VTE Drug Contraindication: N/A - Med Ordered
--- NOTE | 2022-02-01 16:18 | P.PNOB_ITS ---
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 Exam Vitals Vital signs: Temp Pulse Resp BP Pulse Ox O2 Del Method 97.3 F 73 12 114/51 L 97 02/01/22 10:51 02/01/22 10:51 02/01/22 10:51 02/01/22 10:51 02/01/22 10:51 02/01/22 10:51 BMI result Body Mass Index 26.4 Abdomen Auscultation/Inspection/Palpation: Soft, Non-distended and No tenderness [facility]ER GILL NET - Prog Note: Results Labs CBC & Chem 7: 02/01/22 08:45 02/01/22 08:45 Labs: Laboratory Results - last 24 hr 02/01/22 02/01/22 08:45 08:45 WBC 9.2 RBC 3.74 L Hgb 10.7 L Hct 33.5 L MCV 89.6 MCH 28.6 MCHC 31.9 RDW 13.9 Plt Count 267 MPV 9.1 L Immature Gran % (Auto) 0.5 H Neut % (Auto) 75.7 H Lymph % (Auto) 13.0 L [place] % (Auto) 9.7 Eos % (Auto) 0.9 Baso % (Auto) 0.2 Lymph # (Auto) 1.2 [place] # (Auto) 0.9 Eos # (Auto) 0.1 Baso # (Auto) 0.0 Abs Immat Gran (auto) 0.05 H Absolute Neuts (auto) 7.0 Absolute Nucleated RBC 0.000 Nucleated RBC % (auto) 0.0 Sodium 136 Potassium 3.5 Chloride 99 Carbon Dioxide 25 Anion Gap 16 BUN 9 Creatinine 0.58 Estim Creat Clear Calc 84.2 Estimated GFR > 60 Random Glucose 128 H Calcium 9.1 FISHER GILL NET - A/P (1) Uterine cancer: Status: Acute Assessment and Plan: Discussed with the patient the preliminary call from the pathologist regarding high-grade carcinoma with clear cell features from the cervical mass biopsy an endometrial biopsy, discussed the patient possible primary endometrial carcinoma with cervical metastasis versus cervical malignancy with endometrial involvement. The options of treatment were discussed with the patient, will refer to [facility] at [facility] , after being discharged from the hospital. Instructed the patient to call our office back in case a referral appointment is not scheduled, missed or canceled so that we will assist on rescheduling another appointment, the patient verbalized understanding agreed with the plan. (2) Endometritis: Status: Acute Assessment and Plan: GC and chlamydia, BV panel, Trichomonas all negative. Blood cultures grew Gram- positive cocci and Gram-negative alethea, repeat blood cultures from 01/31 pending, endometrial biopsy culture grew coagulase-negative Staph, anaerobic culture pending Vancomycin was added, will defer treatment of infection/sepsis to hospital service. 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
[2022-02-01] MEDS: Acetaminophen 325 MG TABLET 650 MG PO (16:25)
[2022-02-01 16:35] VITALS: BP 131/62; PULSE 79; RESP 18; O2SAT 97
[2022-02-01] MEDS: cefTRIAXone sodium 1 GM in 0.9 % Sodium Chloride 50 ML IV (18:05)
[2022-02-01] MEDS: Enoxaparin Sodium 40 MG/0.4 ML SYRINGE SUBCUT (20:04)
[2022-02-01 20:20] VITALS: BP 108/51; PULSE 73; RESP 16; TEMP 36.7; O2SAT 96
[2022-02-01 23:47] VITALS: BP 133/63; PULSE 78; RESP 18; TEMP 36.6; O2SAT 98
[2022-02-02] MEDS: HYDROmorphone HCl 1 MG/ML SYRINGE 0.5 MG IVPUSH ×2 (00:49→19:17)
[2022-02-02] MEDS: metroNIDAZOLE/NS 500 MG/100 ML PIGGYBACK 100 MG IV (06:10)
--- NOTE | 2022-02-02 07:00 | PC.NURSE ---
Assumed care of patient at this time.
[2022-02-02] MEDS: Docusate Sodium 100 MG CAPSULE PO ×2 (07:40→19:17)
[2022-02-02] MEDS: polyethylene glycoL 3350 17 GM POWD.PACK PO (07:40)
[2022-02-02] MEDS: Doxycycline Hyclate 100 MG in 0.9 % Sodium Chloride 250 ML 166.67 MG IV (07:40)
[2022-02-02] MEDS: 0.9 % Sodium Chloride Flush 3 ML SYRINGE IVFLUSH ×2 (07:43→17:09)
[2022-02-02 07:48] VITALS: BP 118/54; PULSE 71; RESP 16; TEMP 37.2; O2SAT 99
[2022-02-02] MEDS: oxyCODONE HCl Immed Release 5 MG TABLET PO ×2 (13:06→20:49)
[2022-02-02] MEDS: Acetaminophen 325 MG TABLET 650 MG PO (13:06)
--- NOTE | 2022-02-02 14:43 | W.PM.IDCN ---
History of Present Illness Data of Consult Service Date: 02/02/22 Requesting physician: Remi Galvez Primary Care Provider: David Terry MD HPI Reason for consult: multiple bacteremia,endometrial malignancy concern She presents with lower abdominal discomfort 6/10 as well as weight loss unintentional Abdominal pain worse over last several days. She has endometrial malignancy concern and concern over GI fistula possible on [facility] Past Medical History Medical History (Updated 02/02/22 @ 14:47 by Jessica Fisher MD) Bacteremia Endometritis Uterine cancer Family History Family History Mother Diabetes Sister Henri-Danlos disease Family history: reviewed and not pertinent Social History Social History Advance Directives: No Advance Directives Information Provided: No service: No Current occupational status: retired [email or web address] Allergies Allergy/AdvReac Type Severity Reaction Status Date / Time No Known Allergies Allergy Verified 01/30/22 12:25 Active Medications: Current Medications Acetaminophen (Acetaminophen 325 Mg Tablet) 650 mg PO Q6H PRN PRN Reason: Pain, Mild (Pain Scale 1-3) Last Admin: 02/02/22 13:06 Dose: 650 mg Docusate Sodium (Docusate Sodium 100 Mg Capsule) 100 mg PO BID [facility] Last Admin: 02/02/22 07:40 Dose: 100 mg Enoxaparin Sodium (Enoxaparin Sodium 40 Mg/0.4 Ml Syringe) 40 mg SUBCUT Q24H [facility] Last Admin: 02/01/22 20:04 Dose: 40 mg Hydromorphone HCl (Hydromorphone Hcl 1 Mg/Ml Syringe) 0.5 mg IVPUSH Q6H PRN; Protocol PRN Reason: Pain, Severe (Pain Scale 7-10) Last Admin: 02/02/22 00:49 Dose: 0.5 mg Ceftriaxone Sodium 1 gm/ (Sodium Chloride) 50 mls @ 100 mls/hr IV Q24H [facility] Last Infusion: 02/01/22 18:38 Dose: Infused Metronidazole (Flagyl) 500 mg in 100 mls @ 100 mls/hr IV Q12H [facility] Last Infusion: 02/02/22 07:19 Dose: Infused Doxycycline Hyclate 100 mg/ (Sodium Chloride) 250 mls @ 166.67 mls/hr IV Q12H [facility] Last Infusion: 02/02/22 09:17 Dose: Infused Ondansetron HCl (Ondansetron Hcl 4 Mg/2 Ml Vial) 4 mg IVPUSH Q8H PRN PRN Reason: Nausea and Vomiting Last Admin: 02/01/22 01:34 Dose: 4 mg Oxycodone HCl (Oxycodone Hcl Immed Release 5 Mg Tablet) 5 mg PO Q6H PRN PRN Reason: Pain, Moderate (Pain Scale 4-6 Last Admin: 02/02/22 13:06 Dose: 5 mg Polyethylene Glycol (Polyethylene Glycol 3350 17 Gm Powd.Pack) 17 gm PO DAILY [facility] Last Admin: 02/02/22 07:40 Dose: 17 gm Polyethylene Glycol (Polyethylene Glycol 3350 17 Gm Powd.Pack) 17 gm PO DAILY [facility] Last Admin: 02/02/22 07:46 Dose: Not Given Sodium Chloride (0.9 % Sodium Chloride Flush 3 Ml Syringe) 3 ml IVFLUSH QSHIFT [facility] Last Admin: 02/02/22 07:43 Dose: 3 ml Home Medications Medication Instructions Recorded Confirmed Last Taken Type ibuprofen 200 mg tablet (Advil) 200 mg PO Q6H PRN PAIN 01/30/22 01/30/22 Unknown History lactobacillus combination no.4 3 3,000 mmu cells PO DAILY 01/30/22 01/30/22 Unknown History billion cell capsule (Probiotic) viviscal 2 tab PO DAILY 01/30/22 Unknown History Physical Exam Vital Signs: Vital Signs: Last Vital Signs Temp 98.9 F 02/02/22 07:48 Pulse 71 02/02/22 07:48 Resp 16 02/02/22 07:48 BP 118/54 L 02/02/22 07:48 Pulse Ox 99 02/02/22 07:48 O2 Del Method 02/02/22 07:48 BMI result Body Mass Index 26.4 Const: General: cooperative HEENT: Head: Yes normal to inspection Face and sinus: Yes normal facial exam Mouth: Normal oral and palatal mucosa present Teeth and gingiva: dentition normal Eyes: General: appearance normal, both eyes and all related structures Pupils: Equal, round and reactive pupils present Resp: Effort & Inspection: normal respiratory effort Cardio: Rate: regular rate Rhythm: regular rhythm GI: Palpation (GI): Soft to palpation and Tenderness to palpation present (GI) (discomfort lower abdomen) : General: Yes no CVA tenderness Back/Spine/Pelvis: Back: no CVA tenderness Skin: General skin exam: no rashes or lesions noted Neuro: General: moves all extremities Cranial nerves: Yes Equal, round and reactive pupils present Extrem: General: Yes normal to inspection Psych: Appearance: grossly normal Results Labs CBC & Chem 7: 02/01/22 08:45 02/01/22 08:45 Microbiology Microbiology Results: Microbiology 01/30/22 16:44 Blood - Venous Blood Culture - Preliminary Prelim: GPC Gram Stain only Prelim: GNR Gram Stain only 01/30/22 16:34 Blood - Venous Blood Culture - Preliminary Prelim: GPC Gram Stain only 01/30/22 16:10 Endometrium Gram Stain - Final 01/30/22 16:10 Endometrium Routine Culture - Final Coag negative Staphylococcus 01/30/22 16:10 Endometrium Anaerobic Culture - Preliminary Culture in progress. 01/31/22 15:45 Blood - Venous Blood Culture - Preliminary No growth after 24 hours. 01/31/22 15:45 Blood - Venous Blood Culture - Preliminary No growth after 24 hours. Assessment and Plan (1) Endometritis: Status: Acute (2) Uterine cancer: Status: Acute (3) Bacteremia: Status: Acute There is concern over bacteremia and any possible GI fistula. Gram negative anerobe and gram positive need to be covered. Do not need to cover atypical organisms such as chlamydia or yeast any further at this time Plan Vancomycin Zosyn Await blood cultures. Surgical opinion ?GI fistula.
--- NOTE | 2022-02-02 14:46 | PC.NURSE ---
Report given to MOHSEN Roman [facility] at this time.
[2022-02-02 16:00] VITALS: BP 152/67; PULSE 73; RESP 18; TEMP 36; O2SAT 96
--- NOTE | 2022-02-02 16:20 | P.PNIM_ITS ---
Subjective Subjective Date of Service: 02/02/22 Interval History: patient feeling better less pelvic discomfort, no fevers no chills tolerating diet no nausea no vomiting had bowel movement no acute issues overnight. 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 awake alert x3 no acute distress.? Neck no JVD. CVS? regular rate rhythm, Respiratory lungs clear to auscultation, no respiratory distress, no wheeze, no rhonchi. Gastrointestinal abdomen soft,mild left lower quadrant tenderness , no rebound, no rigidity. Extremities no edema. Neuro nonfocal Skin no rash? Objective Data Active Medications Acetaminophen (Acetaminophen 325 Mg Tablet) 650 mg PO Q6H PRN PRN Reason: Pain, Mild (Pain Scale 1-3) Last Admin: 02/02/22 13:06 Dose: 650 mg Documented By: GUERLINE Docusate Sodium (Docusate Sodium 100 Mg Capsule) 100 mg PO BID [facility] Last Admin: 02/02/22 07:40 Dose: 100 mg Documented By: GUERLINE Enoxaparin Sodium (Enoxaparin Sodium 40 Mg/0.4 Ml Syringe) 40 mg SUBCUT Q24H [facility] Last Admin: 02/01/22 20:04 Dose: 40 mg Documented By: LUIS Hydromorphone HCl (Hydromorphone Hcl 1 Mg/Ml Syringe) 0.5 mg IVPUSH Q6H PRN; Protocol PRN Reason: Pain, Severe (Pain Scale 7-10) Last Admin: 02/02/22 00:49 Dose: 0.5 mg Documented By: LUIS Ceftriaxone Sodium 1 gm/ (Sodium Chloride) 50 mls @ 100 mls/hr IV Q24H [facility] Last Infusion: 02/01/22 18:38 Dose: 0 mls/hr Documented By: GUERLNIE Metronidazole (Flagyl) 500 mg in 100 mls @ 100 mls/hr IV Q12H [facility] Last Infusion: 02/02/22 07:19 Dose: 0 mls/hr Documented By: GUERLINE Doxycycline Hyclate 100 mg/ (Sodium Chloride) 250 mls @ 166.67 mls/hr IV Q12H [facility] Last Infusion: 02/02/22 09:17 Dose: 0 mls/hr Documented By: GUERLINE Ondansetron HCl (Ondansetron Hcl 4 Mg/2 Ml Vial) 4 mg IVPUSH Q8H PRN PRN Reason: Nausea and Vomiting Last Admin: 02/01/22 01:34 Dose: 4 mg Documented By: DON Oxycodone HCl (Oxycodone Hcl Immed Release 5 Mg Tablet) 5 mg PO Q6H PRN PRN Reason: Pain, Moderate (Pain Scale 4-6 Last Admin: 02/02/22 13:06 Dose: 5 mg Documented By: GUERLINE Polyethylene Glycol (Polyethylene Glycol 3350 17 Gm Powd.Pack) 17 gm PO DAILY [facility] Last Admin: 02/02/22 07:40 Dose: 17 gm Documented By: DANILO-GE Polyethylene Glycol (Polyethylene Glycol 3350 17 Gm Powd.Pack) 17 gm PO DAILY [facility] Last Admin: 02/02/22 07:46 Dose: Not Given Documented By: GUERLINE Non-Admin Reason: Previously Administered Sodium Chloride (0.9 % Sodium Chloride Flush 3 Ml Syringe) 3 ml IVFLUSH QSHIFT [facility] Last Admin: 02/02/22 07:43 Dose: 3 ml Documented By: GUERLINE Labs CBC & Chem 7: 02/01/22 08:45 02/01/22 08:45 Microbiology Microbiology Results: Microbiology 01/30/22 16:44 Blood Culture - Preliminary Blood - Venous Prelim: GPC Gram Stain only Prelim: GNR Gram Stain only 01/30/22 16:34 Blood Culture - Preliminary Blood - Venous Prelim: GPC Gram Stain only 01/30/22 16:10 Gram Stain - Final Endometrium Routine Culture - Final Coag negative Staphylococcus Anaerobic Culture - Preliminary Culture in progress. 01/31/22 15:45 Blood Culture - Preliminary Blood - Venous No growth after 24 hours. 01/31/22 15:45 Blood Culture - Preliminary Blood - Venous No growth after 24 hours. Assessment and Plan (1) Uterine cancer: Status: Acute (2) Endometritis: Status: Acute (3) Constipation: Status: Acute (4) Cervical mass: Status: Acute (5) Post-menopausal bleeding: Status: Acute Plan 71-year-old female without significant medical history to be observed for endometritis/PID and uterine cancer. 1- Sepsis due to Endometritis no recurrent fevers , WBC normalized, normal lactic acid blood cultures growing Gram-positive cocci and Gram-negative alethea repeat blood cultures from 01/31 are negative , cervical culture grew coagulase-negative Staph, anaerobic culture pending GC, chlamydia cultures, negative on IV flagyl, IV cetriaxone, and iv doxycycline will DC current antibiotics and place on IV Zosyn and vancomycin to cover for Gram-negative and Gram- positive follow final blood cultures follow-up on general surgery regarding concern for GI fistula continue pain management with Dilaudid reduce dose to 0.5 mg IV as needed and continue Oxycodone prn 2-Uterine cancer- hx of postmenopausal bleeding x 6 months with mild ch. anemia -Ct abd/pelvis with marked endometrial thickening along with scattered foci of gas, suspicious for uterine malignancy given age. Also several enlarged retroperitoneal and pelvic lymph nodes, suspicious for rob mets -Cervical and endometrial bx showed high-grade Ca Dr. Mora recommend outpatient management 3-Chronic constipation - continue Docusate and miralax DVT prophylaxis- Lovenox subq patient will need continued inpatient hospitalization due to sepsis requiring IV antibiotics treatment cannot be provided at less acute setting. Quality Stroke Does the patient have a stroke diagnosis?: No VTE Prior VTE?: No VTE Risk Level:: Medical - moderate - high VTE Device Contraindication: Treatment Not Indicated VTE Drug Contraindication: N/A - Med Ordered
--- NOTE | 2022-02-02 16:49 | PHA.PROG ---
Admission Date/Time: January 30, 2022 17:16 Indication: Bacteremia Weight in k kg Adjusted body weight in Kg: [place] body weight in Kg: Obesity Dosing Indication % IBW: Serum Creatinine - Last 168 Hours 01/30/22 02/01/22 10:30 08:45 Creatinine 0.57 0.58 Estimated CrCl and GFR - Last 168 Hours 01/30/22 02/01/22 10:30 08:45 Estim Creat Clear Calc 85.6 84.2 Estimated GFR > 60 > 60 Vancomycin Loading Dose: Dr. Galvez put in a one time dose 01/31 but did not want a consultation; 1000mg X 1 Current Vancomycin Dosing Regimen: 1500mg Q24 Vancomycin Monitoring using AUC goal of 400 - 600 range with trough as surrogate marker: 567mg/L Date and Time for next Vancomycin Level to be drawn: 02/05 @1500 Pharmacist Comments on Vancomycin Plan: Renal function is good right now, going for a higher dose due to indication. Will continue to monitor daily Vancomycin dosing will take advantage of [employer] as a clinical decision support tool that uses Bayesian modeling to calculate individual patient's pharmacokinetic parameters and forecast the patient's drug concentration time course with the target goal AUC 24 range of 400 - 600 mg/L/hr.
--- NOTE | 2022-02-02 16:59 | P.PNGS_ITS ---
Subjective Subjective Date of Service: 02/02/22 Interval history: pt denies abdominal pain has good BMs denies dysuria no fever has vaginal bleeding Physical Exam Vital Signs: Vital Signs: Last Vital Signs Temp 98.9 F 02/02/22 07:48 Pulse 71 02/02/22 07:48 Resp 16 02/02/22 07:48 BP 118/54 L 02/02/22 07:48 Pulse Ox 99 02/02/22 07:48 O2 Del Method 02/02/22 07:48 BMI result Body Mass Index 26.4 Const: Other: looks well General: comfortable and no acute distress Resp: Effort & Inspection: normal respiratory effort Cardio: Rate: regular rate GI: Palpation (GI): Soft to palpation, not firm and nontender Objective Data Active Medications Acetaminophen (Acetaminophen 325 Mg Tablet) 650 mg PO Q6H PRN PRN Reason: Pain, Mild (Pain Scale 1-3) Last Admin: 02/02/22 13:06 Dose: 650 mg Documented By: GUERLINE Docusate Sodium (Docusate Sodium 100 Mg Capsule) 100 mg PO BID [facility] Last Admin: 02/02/22 07:40 Dose: 100 mg Documented By: GUERLINE Enoxaparin Sodium (Enoxaparin Sodium 40 Mg/0.4 Ml Syringe) 40 mg SUBCUT Q24H [facility] Last Admin: 02/01/22 20:04 Dose: 40 mg Documented By: LUIS Hydromorphone HCl (Hydromorphone Hcl 1 Mg/Ml Syringe) 0.5 mg IVPUSH Q6H PRN; Protocol PRN Reason: Pain, Severe (Pain Scale 7-10) Last Admin: 02/02/22 00:49 Dose: 0.5 mg Documented By: LUIS Piperacillin Sod/Tazobactam (Sod 3.375 gm/ Sodium Chloride) 50 mls @ 100 mls/hr IV Q6H [facility] Vancomycin HCl 1,500 mg/ (Sodium Chloride) 500 mls @ 333.333 mls/hr IV Q24H [facility] Ondansetron HCl (Ondansetron Hcl 4 Mg/2 Ml Vial) 4 mg IVPUSH Q8H PRN PRN Reason: Nausea and Vomiting Last Admin: 02/01/22 01:34 Dose: 4 mg Documented By: DON Oxycodone HCl (Oxycodone Hcl Immed Release 5 Mg Tablet) 5 mg PO Q6H PRN PRN Reason: Pain, Moderate (Pain Scale 4-6 Last Admin: 02/02/22 13:06 Dose: 5 mg Documented By: GUERLINE Pharmacy Consult (Consult Rx Vancomycin Dosing) 1 each MISCELLANE DAILY PRN PRN Reason: Consult order Polyethylene Glycol (Polyethylene Glycol 3350 17 Gm Powd.Pack) 17 gm PO DAILY [facility] Last Admin: 02/02/22 07:40 Dose: 17 gm Documented By: GUERLINE Polyethylene Glycol (Polyethylene Glycol 3350 17 Gm Powd.Pack) 17 gm PO DAILY [facility] Last Admin: 02/02/22 07:46 Dose: Not Given Documented By: GUERLINE Non-Admin Reason: Previously Administered Sodium Chloride (0.9 % Sodium Chloride Flush 3 Ml Syringe) 3 ml IVFLUSH QSHIFT [facility] Last Admin: 02/02/22 07:43 Dose: 3 ml Documented By: GUERLINE Labs CBC & Chem 7: 02/01/22 08:45 02/01/22 08:45 Microbiology Microbiology Results: Microbiology 01/30/22 16:44 Blood Culture - Preliminary Blood - Venous Prelim: GPC Gram Stain only Prelim: GNR Gram Stain only 01/30/22 16:34 Blood Culture - Preliminary Blood - Venous Prelim: GPC Gram Stain only 01/30/22 16:10 Gram Stain - Final Endometrium Routine Culture - Final Coag negative Staphylococcus Anaerobic Culture - Preliminary Culture in progress. 01/31/22 15:45 Blood Culture - Preliminary Blood - Venous No growth after 24 hours. 01/31/22 15:45 Blood Culture - Preliminary Blood - Venous No growth after 24 hours. 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
[2022-02-02] MEDS: Piperacillin Sodium/Tazobactam 3.375 GM in 0.9 % Sodium Chloride 50 ML IV (17:02)
[2022-02-02 17:12] LABS: Creatinine Clr Calc Pharmacy 77.4; Estimated Glomerular Filt Rate > 60
[2022-02-02] MEDS: vancomycin HCL 1,500 MG in 0.9 % Sodium Chloride 500 ML 333.33 MG IV (17:38)
[2022-02-02 18:47] VITALS: BMI 28.0
[2022-02-02] MEDS: Enoxaparin Sodium 40 MG/0.4 ML SYRINGE SUBCUT (19:17)
[2022-02-02 23:51] VITALS: BP 156/80; PULSE 77; RESP 20; O2SAT 99
[2022-02-03] MEDS: 0.9 % Sodium Chloride Flush 3 ML SYRINGE IVFLUSH ×4 (00:03→23:34)
[2022-02-03] MEDS: Piperacillin Sodium/Tazobactam 3.375 GM in 0.9 % Sodium Chloride 50 ML IV ×5 (00:03→22:36)
[2022-02-03 00:06] VITALS: TEMP 36.4
--- NOTE | 2022-02-03 00:42 | PC.NURSE ---
Patient was in tears and c/o 10/10 pain. Meds were not due. obtained extra dose from MD and patient was asleep when med became available.
[2022-02-03] MEDS: HYDROmorphone HCl 1 MG/ML SYRINGE 0.5 MG IVPUSH (02:00)
[2022-02-03] MEDS: oxyCODONE HCl Immed Release 5 MG TABLET PO ×3 (04:31→22:53)
[2022-02-03 06:12] LABS: Creatinine Clr Calc Pharmacy 86.4; Estimated Glomerular Filt Rate > 60
[2022-02-03 08:00] VITALS: BP 136/68; PULSE 73; RESP 16; TEMP 36.2; O2SAT 99
[2022-02-03] MEDS: Acetaminophen 325 MG TABLET 650 MG PO ×2 (08:38→18:08)
--- NOTE | 2022-02-03 09:11 | HE.PHANOTE ---
LIZ KONG CHANGED INSIGHT TO OBESE MODEL SINCE >30% OVER IBW. WILL NOT CHANGE DOSE, BUT WILL GET A RANDOM TOMORROW. KIDNEY FUNCTION STABLE. PT CLINICALLY DOING MUCH BETTER THANKS BONNY
--- NOTE | 2022-02-03 12:01 | P.PNIM_ITS ---
Subjective Subjective Date of Service: 02/03/22 Interval History: Events from last night noted patient few episodes of loose stools, denies worsening abdominal pain, no nausea no vomiting admits to have continuous pain lower left quadrant, that sometimes worsens less cervical discharge, denies fever chills. Review of Systems Review of Systems: Yes all other systems are reviewed and are negative Physical Exam Vital Signs: Vital Signs: Last Vital Signs Temp 97.1 F 02/03/22 08:00 Pulse 73 02/03/22 08:00 Resp 16 02/03/22 08:00 BP 136/68 02/03/22 08:00 Pulse Ox 99 02/03/22 08:00 O2 Del Method 02/03/22 08:00 BMI result Body Mass Index 28.0 Const: Other: General? awake alert x3? no acute distress.? Neck no JVD. CVS? regular rate rhythm, Respiratory lungs clear to auscultation, no respiratory distress, no wheeze, no rhonchi. Gastrointestinal abdomen soft,mild left lower quadrant tenderness , no rebound, no rigidity. Extremities no edema. Neuro nonfocal Skin no rash? Psych appropriate affect Objective Data Active Medications Acetaminophen (Acetaminophen 325 Mg Tablet) 650 mg PO Q6H PRN PRN Reason: Pain, Mild (Pain Scale 1-3) Last Admin: 02/03/22 08:38 Dose: 650 mg Documented By: HUSSAIN Enoxaparin Sodium (Enoxaparin Sodium 40 Mg/0.4 Ml Syringe) 40 mg SUBCUT Q24H [facility] Last Admin: 02/02/22 19:17 Dose: 40 mg Documented By: KHALIDA Hydromorphone HCl (Hydromorphone Hcl 1 Mg/Ml Syringe) 0.5 mg IVPUSH Q6H PRN; Protocol PRN Reason: Pain, Severe (Pain Scale 7-10) Last Admin: 02/03/22 02:00 Dose: 0.5 mg Documented By: DANNY Piperacillin Sod/Tazobactam (Sod 3.375 gm/ Sodium Chloride) 50 mls @ 100 mls/hr IV Q6H [facility] Last Infusion: 02/03/22 11:55 Dose: 0 mls/hr Documented By: HUSSAIN Vancomycin HCl 1,500 mg/ (Sodium Chloride) 500 mls @ 333.333 mls/hr IV Q24H [facility] Last Infusion: 02/02/22 19:21 Dose: 0 mls/hr Documented By: KHALIDA Ondansetron HCl (Ondansetron Hcl 4 Mg/2 Ml Vial) 4 mg IVPUSH Q8H PRN PRN Reason: Nausea and Vomiting Last Admin: 02/01/22 01:34 Dose: 4 mg Documented By: DON Oxycodone HCl (Oxycodone Hcl Immed Release 5 Mg Tablet) 5 mg PO Q6H PRN PRN Reason: Pain, Moderate (Pain Scale 4-6 Last Admin: 02/03/22 04:31 Dose: 5 mg Documented By: DANNY Pharmacy Consult (Consult Rx Vancomycin Dosing) 1 each MISCELLANE DAILY PRN PRN Reason: Consult order Sodium Chloride (0.9 % Sodium Chloride Flush 3 Ml Syringe) 3 ml IVFLUSH QSHIFT [facility] Last Admin: 02/03/22 08:39 Dose: 3 ml Documented By: HUSSAIN Labs CBC & Chem 7: 02/01/22 08:45 02/03/22 05:38 Labs: Laboratory Results - last 24 hr 02/02/22 02/03/22 16:49 05:38 Estim Creat Clear Calc 77.4 86.4 Estimated GFR > 60 > 60 Microbiology Microbiology Results: Microbiology 01/30/22 16:10 Gram Stain - Final Endometrium Routine Culture - Final Coag negative Staphylococcus Anaerobic Culture - Preliminary Culture in progress. 01/31/22 15:45 Blood Culture - Preliminary Blood - Venous No growth after 48 hours. 01/31/22 15:45 Blood Culture - Preliminary Blood - Venous No growth after 48 hours. 01/30/22 16:44 Blood Culture - Preliminary Blood - Venous Prelim: GPC Gram Stain only Prelim: GNR Gram Stain only 01/30/22 16:34 Blood Culture - Preliminary Blood - Venous Prelim: GPC Gram Stain only Assessment and Plan (1) Uterine cancer: Status: Acute (2) Endometritis: Status: Acute (3) Constipation: Status: Acute (4) Cervical mass: Status: Acute (5) Post-menopausal bleeding: Status: Acute Plan 71-year-old female without significant medical history to be observed for endometritis/PID and uterine cancer. 1-Sepsis due to Endometritis no recurrent fevers , WBC normalized, normal lactic acid blood cultures growing Gram-positive cocci and Gram-negative alethea repeat blood cultures from 01/31 are negative , cervical culture grew coagulase-negative Staph, anaerobic culture pending final blood cultures not available GC, chlamydia cultures, negative on IV vanco and Zosyn day 2 s/p IV flagyl, IV cetriaxone, and iv doxycycline since no evidence of monica orrhea and chlamydia these antibiotics were discontinued seen by general surgery they recommend OBGYN for definite treatment since no obvious tract noted on CT abdomen continue pain management with Dilaudid 0.5 mg IV as needed and continue Oxycodone prn 2-Uterine cancer- hx of postmenopausal bleeding x 6 months with mild ch. anemia -Ct abd/pelvis with marked endometrial thickening along with scattered foci of gas, suspicious for uterine malignancy given age. Also several enlarged retrop eritoneal and pelvic lymph nodes, suspicious for rob mets -Cervical and endometrial bx showed high-grade Ca Dr. Mora recommend outpatient management 3- diarrhea patient initially noted to have constipation therefore treated with stool softeners noted to have diarrhea will discontinue Colace and MiraLax check stool for C diff if negative will give Imodium. DVT prophylaxis- Lovenox subq patient will need continued inpatient hospitalization due to sepsis requiring IV antibiotics treatment cannot be provided at less acute setting , awaiting final blood culture result.. Quality Stroke Does the patient have a stroke diagnosis?: No VTE Prior VTE?: No VTE Risk Level:: Medical - moderate - high VTE Device Contraindication: Treatment Not Indicated VTE Drug Contraindication: N/A - Med Ordered
[2022-02-03 15:29] VITALS: BP 134/63; PULSE 71; RESP 18; TEMP 36.2; O2SAT 97
[2022-02-03] MEDS: vancomycin HCL 1,500 MG in 0.9 % Sodium Chloride 500 ML 333.3 MG IV (18:02)
[2022-02-03] MEDS: Enoxaparin Sodium 40 MG/0.4 ML SYRINGE SUBCUT (20:27)
[2022-02-03 23:55] VITALS: BP 148/67; PULSE 78; RESP 18; TEMP 36.3; O2SAT 95
[2022-02-04 02:53] VITALS: BP 171/91; PULSE 86
[2022-02-04] MEDS: HYDROmorphone HCl 1 MG/ML SYRINGE 0.5 MG IVPUSH ×2 (02:53→09:02)
[2022-02-04] MEDS: Piperacillin Sodium/Tazobactam 3.375 GM in 0.9 % Sodium Chloride 50 ML IV ×4 (05:59→22:32)
[2022-02-04] MEDS: oxyCODONE HCl Immed Release 5 MG TABLET PO ×2 (05:59→12:34)
[2022-02-04 07:00] LABS: Creatinine Clr Calc Pharmacy 87.9; Estimated Glomerular Filt Rate > 60
[2022-02-04 07:34] VITALS: BP 156/74; PULSE 84; RESP 18; TEMP 36.8; O2SAT 99
[2022-02-04] MEDS: 0.9 % Sodium Chloride Flush 3 ML SYRINGE IVFLUSH ×3 (08:11→22:33)
[2022-02-04] MEDS: oxyCODONE HCl ER 10 MG TAB.ER.12H PO ×2 (12:21→22:32)
--- NOTE | 2022-02-04 15:59 | HO.PM.IMPN ---
Subjective Subjective Date of Service: 02/04/22 Interval History: being followed for endometrial cancer, bacteremia and endometritis, patient complaining of persistent bilateral lower quadrant abdominal/pelvic pain, denies nausea vomiting tolerating diet no recurrent fevers chills persistent dark brown vaginal discharge. Denies urinary frequency urgency, denies shortness of breath chest pain, no shortness of breath, no headache no dizziness. Review of Systems Review of Systems: Yes all other systems are reviewed and are negative Physical Exam Vital Signs: Vital Signs: Last Vital Signs Temp 98.3 F 02/04/22 07:34 Pulse 84 02/04/22 07:34 Resp 18 02/04/22 07:34 BP 156/74 H 02/04/22 07:34 Pulse Ox 99 02/04/22 07:34 O2 Del Method 02/04/22 07:34 BMI result Body Mass Index 28.0 Const: Other: General? awake alert x3? no acute distress.? Neck no JVD. CVS? regular rate rhythm, Respiratory lungs clear to auscultation, no respiratory distress, no wheeze, no rhonchi. Gastrointestinal abdomen soft,mild left lower quadrant tenderness , no rebound, no rigidity. Extremities no edema. Neuro nonfocal Skin no rash? Psych appropriate affect Objective Data Active Medications Acetaminophen (Acetaminophen 325 Mg Tablet) 650 mg PO Q6H PRN PRN Reason: Pain, Mild (Pain Scale 1-3) Last Admin: 02/03/22 18:08 Dose: 650 mg Documented By: BHASKAR Enoxaparin Sodium (Enoxaparin Sodium 40 Mg/0.4 Ml Syringe) 40 mg SUBCUT Q24H [facility] Last Admin: 02/03/22 20:27 Dose: 40 mg Documented By: BHASKAR Hydromorphone HCl (Hydromorphone Hcl 1 Mg/Ml Syringe) 0.5 mg IVPUSH Q6H PRN; Protocol PRN Reason: Pain, Severe (Pain Scale 7-10) Last Admin: 02/04/22 09:02 Dose: 0.5 mg Documented By: HUSSAIN Piperacillin Sod/Tazobactam (Sod 3.375 gm/ Sodium Chloride) 50 mls @ 100 mls/hr IV Q6H [facility] Last Infusion: 02/04/22 13:02 Dose: 0 mls/hr Documented By: HUSSAIN Vancomycin HCl 1,500 mg/ (Sodium Chloride) 500 mls @ 333.333 mls/hr IV Q24H [facility] Last Infusion: 02/03/22 20:19 Dose: 0 mls/hr Documented By: BHASKAR Loperamide HCl (Loperamide Hcl 2 Mg Capsule) 2 mg PO Q6H PRN PRN Reason: Diarrhea Ondansetron HCl (Ondansetron Hcl 4 Mg/2 Ml Vial) 4 mg IVPUSH Q8H PRN PRN Reason: Nausea and Vomiting Last Admin: 02/01/22 01:34 Dose: 4 mg Documented By: DON Oxycodone HCl (Oxycodone Hcl Immed Release 5 Mg Tablet) 5 mg PO Q6H PRN PRN Reason: Pain, Moderate (Pain Scale 4-6 Last Admin: 02/04/22 12:34 Dose: 5 mg Documented By: HUSSAIN Oxycodone HCl (Oxycodone Hcl Er 10 Mg Tab.Er.12h) 10 mg PO BID [facility] Last Admin: 02/04/22 12:21 Dose: 10 mg Documented By: HUSSAIN Pharmacy Consult (Consult Rx Vancomycin Dosing) 1 each MISCELLANE DAILY PRN PRN Reason: Consult order Sodium Chloride (0.9 % Sodium Chloride Flush 3 Ml Syringe) 3 ml IVFLUSH QSHIFT [facility] Last Admin: 02/04/22 15:51 Dose: 3 ml Documented By: MITRA Labs CBC & Chem 7: 02/01/22 08:45 02/04/22 05:20 Labs: Laboratory Results - last 24 hr 02/04/22 05:20 Estim Creat Clear Calc 87.9 Estimated GFR > 60 Microbiology Microbiology Results: Microbiology 01/30/22 16:44 Blood Culture - Preliminary Blood - Venous Gemella morbillorum Prelim: GNR Gram Stain only 01/30/22 16:34 Blood Culture - Final Blood - Venous Gemella morbillorum 01/30/22 16:10 Gram Stain - Final Endometrium Routine Culture - Final Coag negative Staphylococcus Anaerobic Culture - Final Bacteroides thetaiotaomicron Assessment and Plan (1) Uterine cancer: Status: Acute (2) Endometritis: Status: Acute (3) Constipation: Status: Acute (4) Cervical mass: Status: Acute (5) Post-menopausal bleeding: Status: Acute Plan 71-year-old female without significant medical history to be observed for endometritis/PID and uterine cancer. 1-Sepsis due to Endometritis no recurrent fevers , WBC normalized, normal lactic acid blood cultures growing Gram-positive cocci and Gram-negative alethea repeat blood cultures from 01/31 are negative , cervical culture grew coagulase-negative Staph, anaerobic culture grew bacteroids final blood cultures not available due to small growth GC, chlamydia cultures, negative on IV vanco and Zosyn day 3 s/p IV flagyl, IV cetriaxone, and iv doxycycline since no evidence of gonorrhea and chlamydia these antibiotics were discontinued seen by general surgery they recommend outpatient follow-[facility] at [facility] for definite treatment since no obvious tract noted on CT abdomen continue pain management with Oxycodone prn, add OxyContin 10 mg b.i.d.,will DC IV Dilaudid 0.5 mg as needed 2-Uterine cancer- hx of postmenopausal bleeding x 6 months with mild ch. anemia -Ct abd/pelvis with marked endometrial thickening along with scattered foci of gas, suspicious for uterine malignancy given age. Also several enlarged retroperitoneal and pelvic lymph nodes, suspicious for rob mets -Cervical and endometrial bx showed high-grade Ca Dr. Mora recommend outpatient management 3- diarrhea resolved c.diff not collected patient initially noted to have constipation therefore treated with stool softeners noted to have diarrhea therefore Colace and MiraLax discontinued follow clinical course DVT prophylaxis- Lovenox subq patient will need continued inpatient hospitalization due to sepsis requiring IV antibiotics treatment cannot be provided at less acute setting , awaiting final blood culture result.. Quality Stroke Does the patient have a stroke diagnosis?: No VTE Prior VTE?: No VTE Risk Level:: Medical - moderate - high VTE Device Contraindication: Treatment Not Indicated VTE Drug Contraindication: N/A - Med Ordered
[2022-02-04 16:00] VITALS: BP 131/62; PULSE 77; RESP 17; TEMP 36.4; O2SAT 98
[2022-02-04 16:03] LABS: Vancomycin Random 4.9 mcg/mL (15-20)
--- NOTE | 2022-02-04 16:15 | HE.PHANOTE ---
LIZ KONG INCREASING DOSE TO 1GRAM Q12 H, AUC 470, TROUGH 10.5. 1500mg Q24 GAVE A TROUGH OF 4.9. RANDOM SCHEDULED FOR TOMORROW 02/05 1500
[2022-02-04] MEDS: vancomycin HCL 1,000 MG in 0.9 % Sodium Chloride 250 ML 270 MG IV (17:38)
[2022-02-04 19:04] VITALS: BP 144/65; PULSE 77; RESP 17; TEMP 36.6; O2SAT 97
[2022-02-04] MEDS: Enoxaparin Sodium 40 MG/0.4 ML SYRINGE SUBCUT (20:13)
[2022-02-04 23:11] VITALS: BP 140/65; PULSE 74; RESP 18; TEMP 36.2; O2SAT 96
[2022-02-05] MEDS: Piperacillin Sodium/Tazobactam 3.375 GM in 0.9 % Sodium Chloride 50 ML IV ×2 (04:56→10:55)
[2022-02-05] MEDS: vancomycin HCL 1,000 MG in 0.9 % Sodium Chloride 250 ML 270 MG IV (05:29)
[2022-02-05] MEDS: 0.9 % Sodium Chloride Flush 3 ML SYRINGE IVFLUSH (07:41)
[2022-02-05] MEDS: oxyCODONE HCl ER 10 MG TAB.ER.12H PO (09:26)
[2022-02-05] MEDS: oxyCODONE HCl Immed Release 5 MG TABLET PO ×2 (11:33→16:48)
[2022-02-05 15:32] VITALS: BMI 28.0
[2022-02-05 15:32] LABS: Creatinine Clr Calc Pharmacy 78.3; Estimated Glomerular Filt Rate > 60
--- NOTE | 2022-02-05 15:44 | MHC.CLN ---
NUTRITION PATIENT REPORTS APPROXIMATE 80# WEIGHT LOSS X ONE YEAR. STARTED WITH INTENTIONAL WEIGHT LOSS WITH CHANGE TO EATING HABITS. CONTINUED UNINTENTIONAL WEIGHT LOSS. ADDING ENSURE BID PER PATIENT PREFERENCE. PROVIDES 700 KCALS, 40 G PROTEIN.
[2022-02-05 15:45] LABS: Vancomycin Random 9.1 mcg/mL (15-20)
[2022-02-05 15:48] VITALS: BP 137/67; PULSE 76; RESP 18; TEMP 36.2; O2SAT 98
--- NOTE | 2022-02-05 15:50 | PM.DS ---
DS: Providers Provider Date of Service: 02/05/22 Date of admission: 01/30/22 17:16 Date of discharge: 02/05/22 Primary care physician: David Terry MD Consults: 01/30/22 17:41 Consult to Obstetrics / Gynecology Routine Consulting Provider: Maximilian Mora Reason for consultation: PID, uterine cancer Has provider been notified: Yes 02/01/22 10:50 Consult to Infectious Diseases Routine Consulting Provider: Jessica Fisher Reason for consultation: gm pos bacteremia Has provider been notified: No 02/02/22 16:22 Consult to General Surgery Routine Consulting Provider: Ciro Polanco Reason for consultation: endometritis ? gi fistula Has provider been notified: No DS: Diagnosis Discharge Diagnosis (1) Endometritis: Status: Acute (2) Cervical mass: Status: Acute (3) Post-menopausal bleeding: Status: Acute (4) Clear cell carcinoma: Status: Acute (5) Bacteremia: Status: Acute (6) Sepsis: Status: Acute DS: Summary Hospital Course Hospital Course: from admission H+P by hospitalist JEFFERY Bailey, 01/30/22: 71-year-old female without significant medical history presented earlier today to our urgent care for evaluation of constipation as well as postmenopausal bleeding.? She was advised by the Urgent Care to come to the ED for further evaluation.? The patient states that about 1 year ago she developed urinary incontinence and has been treating this with azo.? About 10 months ago she developed a clear vaginal discharge that was occasionally blood tinged with intra and clots.? She has not sought dynamometer tester care due to insurance issues per the patient.? More recently she has developed pain in the suprapubic and left lower quadrant regions.? She has blamed this on constipation.? States she only has small bowel movements every few days and treats with a laxative at home as well as heating pads.? She has also used enemas to treat constipation.? She does also state that she has lost about 80 lb over the last year unintentionally.? In the ED, labs were significant for leukocytosis of 14.3.? There is mild normocytic anemia with H/H of 11.1/34.7%.? CT of the abdomen/pelvis shows marked endometrial thickening along with scattered foci of gas, suspicion for uterine malignancy.? There is partial fistulous connection with the GI tract which cannot be excluded.? Also suggestive of possible endometritis.? There was also noted to be several enlarged retroperitoneal and pelvic lymph nodes suspicious for rob metastasis.? She has been seen by Dr. Mora who performed cervical and endometrial biopsy well and P ED.? He also collected GC and chlamydia cultures along with BV panel.? Recommends treatment for PID with inpatient admission.? In the ED, received dose of Zosyn.? Blood cultures are pending. She was admitted to the medical/surgical floor. Pathology from the cervical and endometrial biopsy revealed high-grade carcinoma with clear cell features, suggestive of endometrial carcinoma with cervical metastases or cervical carcinoma with endometrial involvement. She was seen by OB-IMAGE PROCESSING ENGINEER and outpatient evaluation by IMAGE PROCESSING ENGINEER[facility] at [facility] [Dr Bella Birmingham] will be arranged. The patient was given oxycodone ER + IR for pain management. She was treated for endometritis with broad-spectrum antibiotics, vancomycin plus piperacillin-tazobactam for 3 days. Leukocytosis normalized. GC/CT testing was negative; blood cultures ultimately grew vmxl-cbrdxevud-cawymysr Gemella morbillorum plus ttou-rejvumegw-zotbjevo Bacteroides thetaiotaomicron. Cervical cultures also grew Bacteroids thetaiotamicron. ID was consulted. Blood cultures cleared with antibiotic therapy. She was discharged home on 11 more days of amoxicillin-clavulanate. Time Spent with Patient Time attestation: Total time spent providing and/or coordinating discharge services: Discharge coordination time: Greater than 30 minutes Quality: Safe Use of Opioids Does Pt have an Active Cancer Diagnosis on the Problem List?: Yes Opioid Measure Date for [facility] Report: 01/06/22 Opioid Measure Time for [facility] Report: 15:52 Quality: Stroke Does the patient have a stroke diagnosis?: No Physical Exam Vital Signs: Vital Signs: Last Vital Signs Temp 97.2 F 02/05/22 15:48 Pulse 76 02/05/22 15:48 Resp 18 02/05/22 15:48 BP 137/67 02/05/22 15:48 Pulse Ox 98 02/05/22 15:48 O2 Del Method 02/05/22 15:48 BMI result Body Mass Index 28.0 Gen: in no acute distress HEENT: sclera anicteric, moist mucus membranes Neck: supple Lungs: clear to auscultation bilaterally Heart: regular rate and rhythm, no murmurs Abd: soft, LLQ tenderness, no rebound Ext: no edema Skin: warm/well-perfused Neuro: alert and oriented x3, no focal findings Psych: appropriate affect DS: Data Data Completed and Pending Completed studies during hospitalization [Text1]: Laboratory Results WBC 9.2 X10*3/uL (4.8-10.8) 02/01/22 08:45 RBC 3.74 X10*6/uL (4.20-5.50) L 02/01/22 08:45 Hgb 10.7 g/dl (12.0-16.0) L 02/01/22 08:45 Hct 33.5 % (37.0-47.0) L 02/01/22 08:45 MCV 89.6 fL (80.0-98.0) 02/01/22 08:45 MCH 28.6 pg (27.0-33.0) 02/01/22 08:45 MCHC 31.9 g/dl (31.0-35.0) 02/01/22 08:45 RDW 13.9 % (11.0-16.0) 02/01/22 08:45 Plt Count 267 X10*3/uL (160-400) 02/01/22 08:45 MPV 9.1 fL (9.4-12.3) L 02/01/22 08:45 Immature Gran % (Auto) 0.5 % (0.0-0.4) H 02/01/22 08:45 Neut % (Auto) 75.7 % (45-73) H 02/01/22 08:45 Lymph % (Auto) 13.0 % (20-40) L 02/01/22 08:45 [place] % (Auto) 9.7 % (2-11) 02/01/22 08:45 Eos % (Auto) 0.9 % (0-4) 02/01/22 08:45 Baso % (Auto) 0.2 % (0-2) 02/01/22 08:45 Lymph # (Auto) 1.2 X10*3/uL (1.2-4.9) 02/01/22 08:45 [place] # (Auto) 0.9 X10*3/uL (0.1-1.2) 02/01/22 08:45 Eos # (Auto) 0.1 X10*3/uL (0.0-0.4) 02/01/22 08:45 Baso # (Auto) 0.0 X10*3/uL (0.0-0.2) 02/01/22 08:45 Abs Immat Gran (auto) 0.05 X10*3/uL (0.00-0.03) H 02/01/22 08:45 Absolute Neuts (auto) 7.0 x10*3/uL (2.0-8.3) 02/01/22 08:45 Absolute Nucleated RBC 0.000 X10*3/uL (0.0-0.012) 02/01/22 08:45 Nucleated RBC % (auto) 0.0 /100WBC (0.0-0.2) 02/01/22 08:45 Sodium 136 mmol/L (135-145) 02/01/22 08:45 Potassium 3.5 mmol/L (3.3-5.1) 02/01/22 08:45 Chloride 99 mmol/L (96-108) 02/01/22 08:45 Carbon Dioxide 25 mmol/L (22-29) 02/01/22 08:45 Anion Gap 16 (12-20) 02/01/22 08:45 BUN 9 mg/dL (9-16) 02/01/22 08:45 Creatinine 0.64 mg/dL (0.5-1.4) 02/05/22 15:11 Estim Creat Clear Calc 78.3 02/05/22 15:11 Estimated GFR > 60 02/05/22 15:11 Random Glucose 128 mg/dL (60-115) H 02/01/22 08:45 Lactic Acid 0.8 mmol/L (0.5-2.0) 01/31/22 15:44 Calcium 9.1 mg/dL (8.4-10.2) 02/01/22 08:45 Total Bilirubin 0.7 mg/dL (0.0-1.0) 01/30/22 10:30 Direct Bilirubin 0.3 mg/dL (0.0-0.5) 01/30/22 10:30 AST 10 U/L (5-31) 01/30/22 10:30 ALT 11 U/L (0-31) 01/30/22 10:30 Alkaline Phosphatase 102 U/L (39-117) 01/30/22 10:30 Total Protein 7.0 g/dL (6.5-8.0) 01/30/22 10:30 Albumin 3.4 g/dL (3.5-5.0) L 01/30/22 10:30 Random Vancomycin 9.1 mcg/mL (15-20) L 02/05/22 15:11 [place]ka species DNA Negative (Negative) 01/30/22 16:10 Chlam trachomat DNA PCR NOT DETECTED (Not Detect.) 01/30/22 16:10 COVID-19 (HERMELINDA) Negative (Negative) 01/30/22 20:32 COVID-19 Clin Com See Note 01/30/22 20:32 [place] DNA Probe Negative (Negative) 01/30/22 16:10 N.gonorrhoeae DNA (PCR) NOT DETECTED (Not Detect.) 01/30/22 16:10 Trichomonas DNA Probe Negative (Negative) 01/30/22 16:10 Impressions Abdomen/Pelvis CT 01/30/22 14:17 IMPRESSION: 1. Marked endometrial thickening along with scattered foci of gas, suspicious for uterine malignancy in a patient of this age. Fistulous connection with the GI tract cannot be excluded. In the proper clinical setting, endometritis could also result in this appearance. 2. Several enlarged retroperitoneal and pelvic lymph nodes, suspicious for rob metastases. This critical result was discussed with Dr. Meng on 01/30/2022 2:58 PM, and it was ascertained that the content and urgency of the report was understood at the time of direct communication. Pending studies at discharge: Pending at discharge 01/30/22 15:56 Surgical Path [Surgical] [PTH] Routine Discharge Plan Discharge Patient Disposition: Home, Self-Care Discharge Diagnosis: high-grade carcinoma with clear cell features: possible primary endometrial carcinoma with cervical metastasis versus cervical malignancy with endometrial involvement polymicrobial bacteremia Referrals: Bella Birmingham [Other] - 1 Week David Terry MD [Primary Care Provider] - 1 Week Discharge Medications: New oxycodone [OxyContin] 10 mg Tablet,Oral Only,Ext.Rel.12 Hr 10 mg PO BID Qty: 60 0RF Rx Instructions: Partial Fill upon patient request. oxycodone 5 mg Tablet 5 mg PO Q6H PRN (Reason: Pain, Moderate (Pain Scale 4-6) Qty: 120 0RF Rx Instructions: Partial Fill upon patient request. amoxicillin-pot clavulanate 875-125 mg tablet 1 tab PO BID Qty: 22 0RF Continued ibuprofen [Advil] 200 mg Tablet 200 mg PO Q6H PRN (Reason: PAIN) Probiotic 3 billion cell Capsule 3,000 mmu cells PO DAILY Rx Instructions: administer with a meal viviscal 2 tab PO DAILY Discharge Orders: Discharge Order (Routine); Ordered 02/05/22 Ordered By: Iraida Lozano Diet: Advance to usual diet Activity on Discharge: As tolerated Stand Alone Forms: Patient Portal Discharge page Care Plan Goals: treatment of cancer cure of bacteremia Health Concerns: high-grade carcinoma with clear cell features: possible primary endometrial carcinoma with cervical metastasis versus cervical malignancy with endometrial involvement polymicrobial bacteremia Plan of Treatment: Take oxycodone for pain related to cancer Follow up as soon as possible with Dr Bella Birmingham, gynecologic oncology at [facility]: [address] [address] Take amoxicillin-clavulanate 875-125 mg twice daily for 11 days. Please follow up with your primary care doctor within 1 week. Return to the hospital if you experience recurrent or worsening symptoms. Assessment: See Discharge Summary.
--- NOTE | 2022-02-05 16:28 | HE.PHANOTE ---
VANCO DOSING ADJUSTMENT Based off trough of 9.1 dose increase to 1250 q 12h. Next trough 02/06 At 1500 predicted auc of 428
== END 2022-02-05 17:24 | disposition home or self-care (01) | DRG 744 ==
LOC: HO.ED 16:17 → HO.EDOVER 17:33 → HO.S3 02-02 14:12
PROVIDERS: Hospitalist; Obstetrics & Gynecology; Admitting Provider Physician Assistant; Emergency Provider Emergency Medicine; PCP Family Medicine; Visit Provider Family Medicine
DX: C54.1 Malignant neoplasm of endometrium (principal); C77.2 Secondary and unspecified malignant neoplasm of intra-abdominal lymph nodes; C79.82 Secondary malignant neoplasm of genital organs; Z66 Do not resuscitate; K59.09 Other constipation; N71.9 Inflammatory disease of uterus, unspecified; R19.7 Diarrhea, unspecified; Z20.822 Contact with and (suspected) exposure to COVID-19
CPT/HCPCS: 36415; 74177; 80048; 80076; 80202; 82565; 83605; 85025; 87040; 87070; 87073; 87076; 87077; 87185; 87205; 87480; 87491; 87510; 87591; 87635; 87660; 88305; 88341; 88342; 88360; 99285; J0696; J1170; J1650; J2270; J2405; J2543; J3370; Q9967